=== PATIENT | female | born 1960 | race Caucasian/White ===

== ENCOUNTER → 2017-10-25 13:42 | Outpatient (CLI) | payer OTHER, SELFPAY ==
--- NOTE | 2017-10-25 13:53 | MR_ITS ---
MR forearm RT wo con Ordering Physician: Willis Abraham MD Patient Age: 57 years: Female HISTORY: ITS.REASON: Firm lipoma of the RT forearm/wrist region TECHNIQUE: Multiplanar multisequence imaging 1.5 T MR. COMPARISON :No relevant previous studies for comparison FINDINGS Skin Marker was placed over palpable area at the ulnar aspect distal wrist. There is a slightly septated scalloped fluid appearing collection here which extends down to abuts the flexor digitorum superficialis tendon, where it passes along the posterior aspect distal ulnar neck and head . Again is palpable area demonstrates fluid signal,. It Measures up to 2.5 cm in length 7.5 mm depth. X 17 mm AP. It does appear to extend to the skin on axial images. However this could reflect a ganglion cyst. Versus some other dermal or sebaceous cyst. These are primary considerations. Other cystic features can occur but less common. It is not fat signal , and thus does to reflect lipoma by MRI. Of the bones with normal signal at at the distal radius and ulna. The carpalsintact & normal relationships.. The lunate with slight generous extension dorsally on the sagittal image but suspect this merely reflects minimal normal variation versus early hypertrophic change on sagittal image 12 The triangle fibrocartilage is in place with upper normal signal at its base T2 signal physician Upper normal signal which may reflects minimal fluid is seen along the anterior aspect the radial styloid but no significant wrist joint effusion otherwise evident. Carpal tunnel intact with no prominent findings. -----IMPRESSION: - -- The palpable area correlates with septated fluid signal structure. This is seen at end just beneath the skin throughout the subcutaneous region, but this fluid collection does extends down to just abut the flexor digitorum superficialis tendon as well. Most likely this reflects either a ganglion cyst or possibly a dermal cystic feature. Other less common entities considered as well. (No fat signal here nor fat suppression to suggest lipoma) Additional note:. On final review of sagittal fat suppression water sensitive images, there may be some scant fluid signal/, which may reflect very very thin extension of fluid distally from area described above. & Questionably seen along medial margin of the ulnar styloid. This feature questioned on sagittal slice 13 but difficult to confirm on other images .. This area is noted and should be considered if this region further pursued
== END ==
PROVIDERS: PCP Family Medicine; Visit Provider Orthopaedic Surgery
DX: D17.21 Benign lipomatous neoplasm of skin and subcutaneous tissue of right arm (principal)
CPT/HCPCS: 73218

== ENCOUNTER → 2020-04-21 15:17 | Outpatient (CLI) | payer OTHER, SELFPAY ==
[2020-04-21 17:11] LABS: Basophils % 0.4 % (0.1-2.0); Eosinophils # 0.1 K/mm3 (0.0-0.4); Eosinophils % 1.5 % (0.1-12.0); Hematocrit 44.6 % (37.0-47.0); Hemoglobin 14.6 g/dL (12.2-16.2); Lymphocytes # 1.6 K/mm3 (0.7-4.5); Lymphocytes % 17.5 % (10-50); Mean Corpuscular HGB Conc 32.6 g/dL (31.8-35.4); Mean Corpuscular Hemoglobin 27.2 pg (27.0-31.2); Mean Corpuscular Volume 83.4 fl (81-99); Mean Platelet Volume 8.4 fl (7.4-10.4); Monocytes # 0.4 K/mm3 (0.1-1.0); Monocytes % 3.9 % (1.7-9.3); Neutrophils # 7.1 K/mm3 (1.8-7.8); Neutrophils % 76.6 % (37.0-80.0); Platelet Count 225 K/mm3 (142-424); Red Blood Count 5.35 M/mm3 (4.20-5.40); Red Cell Distribution Width 16.2 % (11.5-17.5); White Blood Count 9.3 K/mm3 (4.8-10.8)
[2020-04-21 20:55] LABS: Strep Scrn Group A (Rapid) Negative (Negative)
[2020-04-23 16:10] LABS: Covid-19 Nasal PCR Sendout Lex Not Detected
== END ==
PROVIDERS: PCP Nurse Practitioner; Visit Provider Nurse Practitioner
DX: Z03.818 Encounter for observation for suspected exposure to other biological agents ruled out (principal)
CPT/HCPCS: 36415; 85025; 87430; U0004

== ENCOUNTER → 2021-03-25 10:53 | Outpatient (CLI) | payer OTHER, SELFPAY | PROVIDERS: Visit Provider Ophthalmology | DX: Z01.812 Encounter for preprocedural laboratory examination (principal); Z11.52 Encounter for screening for COVID-19 | CPT/HCPCS: C9803; U0003; U0005 ==

== ENCOUNTER 2021-03-28 06:59 | Day surgery (SDC) | payer OTHER, SELFPAY ==
[2021-03-22 13:52] VITALS: BMI 38.7
[2021-03-28] VITALS (7 sets, daily range): BP systolic 132–219; BP diastolic 73–105; PULSE 84–90; RESP 16–18; TEMP 36.3–36.6; O2SAT 96–100
[2021-03-28 07:53] LABS: POC Glucose,Bedside 350 (70-110)
== END 2021-03-28 08:55 | disposition home or self-care (01) ==
LOC: OR 07:03
PROVIDERS: PCP Family Medicine; Visit Provider Ophthalmology
PROC: (CPT 66984; principal; 2021-03-28 08:00)
DX: H25.813 Combined forms of age-related cataract, bilateral (principal); E11.9 Type 2 diabetes mellitus without complications; I10 Essential (primary) hypertension; Z79.82 Long term (current) use of aspirin; Z79.899 Other long term (current) drug therapy
CPT/HCPCS: 66984; 82962; V2632

== ENCOUNTER → 2021-04-08 11:17 | Outpatient (CLI) | payer OTHER, SELFPAY | PROVIDERS: PCP Family Medicine; Visit Provider Ophthalmology | DX: Z01.812 Encounter for preprocedural laboratory examination (principal); Z11.52 Encounter for screening for COVID-19; U07.1 COVID-19 | CPT/HCPCS: C9803; U0003; U0005 ==

== ENCOUNTER → 2021-06-13 09:50 | Outpatient (CLI) | payer OTHER, SELFPAY | PROVIDERS: PCP Family Medicine; Visit Provider Nurse Practitioner | DX: Z20.822 Contact with and (suspected) exposure to COVID-19 (principal) | CPT/HCPCS: C9803; U0003; U0005 ==

== ENCOUNTER → 2021-11-04 11:41 | Outpatient (CLI) | payer OTHER, SELFPAY | PROVIDERS: Visit Provider Ophthalmology | DX: Z01.812 Encounter for preprocedural laboratory examination (principal); Z20.822 Contact with and (suspected) exposure to COVID-19 | CPT/HCPCS: C9803; U0003; U0005 ==

== ENCOUNTER 2021-11-07 08:13 | Day surgery (SDC) | payer OTHER, SELFPAY ==
[2021-11-02 12:43] VITALS: BMI 40.3
[2021-11-07] VITALS (8 sets, daily range): BP systolic 111–151; BP diastolic 56–77; PULSE 58–65; RESP 16–18; TEMP 36.1; O2SAT 98–100
[2021-11-07 09:00] LABS: POC Glucose,Bedside 197 (70-110)
== END 2021-11-07 11:04 | disposition home or self-care (01) ==
LOC: OR 08:13
PROVIDERS: PCP Nurse Practitioner; Visit Provider Ophthalmology
PROC: (CPT 66984; principal; 2021-11-07 10:30)
DX: H25.812 Combined forms of age-related cataract, left eye (principal); S05.32XA Ocular laceration without prolapse or loss of intraocular tissue, left eye, initial encounter; H59.88 Other intraoperative complications of eye and adnexa, not elsewhere classified; H35.3131 Nonexudative age-related macular degeneration, bilateral, early dry stage; Z96.1 Presence of intraocular lens; E11.9 Type 2 diabetes mellitus without complications; I10 Essential (primary) hypertension; Z83.3 Family history of diabetes mellitus; Z82.49 Family history of ischemic heart disease and other diseases of the circulatory system; Z83.518 Family history of other specified eye disorder; Z79.82 Long term (current) use of aspirin; Z79.4 Long term (current) use of insulin; Z79.899 Other long term (current) drug therapy
CPT/HCPCS: 66984; 67010; 82962; V2632

== ENCOUNTER 2023-01-31 13:18 | Inpatient (IN) | payer OTHER, SELFPAY ==
[2023-01-31] VITALS (16 sets, daily range): BP systolic 87–128; BP diastolic 24–99; PULSE 71–78; RESP 16–20; TEMP 36.4–36.6; O2SAT 95–100; BMI 34.7; BMI 41.0
--- NOTE | 2023-01-31 13:54 | XR_ITS ---
FINAL REPORT CLINICAL HISTORY: fall, pain FINDINGS: Left hip Four views were obtained. There is a fracture of the distal femoral neck. 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 There are mild degenerative changes of both hips and in the lower lumbar spine. IMPRESSION: Femoral neck fracture. Reviewed, Interpreted and Dictated by Christiano Valdovinos III, MD Transcribed by Sakshi Vega Authenticated and [facility]
--- NOTE | 2023-01-31 14:14 | PC.NURSE ---
Patient to XR
--- NOTE | 2023-01-31 14:22 | PC.NURSE ---
Patient reporting increased pain; MD notified. V/O from MD for 4mg IVP Morphine and 4mg IVP Zofran.
--- NOTE | 2023-01-31 14:25 | PC.NURSE ---
Rounded on patient; call león within reach. Updated on plan of care
--- NOTE | 2023-01-31 14:31 | CT_ITS ---
FINAL REPORT CLINICAL HISTORY: low back pain raddown L leg FINDINGS: Axial imaging of the lumbar spine was obtained without contrast. Sagittal and coronal reformatted images were also obtained and reviewed.This study was performed with techniques to keep radiation doses as low as reasonably achievable (ALARA). Individualized dose reduction techniques using automated exposure control or adjustment of mA and/or kV according to the patient''s size were employed. There is no fracture or dislocation. There are multilevel degenerative changes, greatest at L5-S1. There is severe right and moderate left neural foraminal narrowing at L5-S1. There is neural foraminal narrowing at multiple other levels. IMPRESSION: Multilevel degenerative change without acute bony abnormality. Reviewed, Interpreted and Dictated by Christiano Valdovinos III, MD Transcribed by Sakshi Vega Authenticated and [facility]
--- NOTE | 2023-01-31 14:32 | HMH.EDGENADL ---
Discharge Plan Disposition Patient Disposition: Admitted As Inpatient Condition: Good Clinical Impressions Clinical Impression: Closed fracture of neck of left femur Qualifiers: Encounter type: initial encounter Qualified Code(s): S72.002A - Fracture of unspecified part of neck of left femur, initial encounter for closed fracture Discharge ED Provider: Leisa Hartman General Adult HPI <Leisa Hartman DO - Last Filed: 01/31/23 16:50> General Chief complaint: Extremity Injury, Lower Stated complaint: fall Time Seen by Provider: 01/31/23 14:31 Mode of Arrival: EMS Source of Information: Patient Limitations: No Limitations Description of Symptoms (Recalled from ER Triage Doc. by RN): Presents to ED with c/o left hip pain secondary to a fall. Patient states she was attempting to pull her underwearing up and went to reach for her walker and missed with walker. 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 -LOC. +PMS. History of Present Illness HPI narrative: This patient is a 62-year-old female with a history of obesity, diabetes, hypertension, hyperlipidemia, chronic back pain secondary to degenerative disease, and chronic left hip pain secondary to osteoarthritis presenting to the emergency department for evaluation with concern for acute left hip pain radiating down her left leg to her posterior calf. she states that this worsened today acutely. She ambulates with a walker at home and used her walker to get to her bedside commode. When pulling up her underwear after using the bathroom, she states that she twisted to the side and felt an immediate pain in her left hip going down her leg. She arrived by EMS, as she slumped down to the floor and was unable to get up. She denies any significant injuries from the fall. EMS notes the patient was stable in route. Patient denies any numbness, tingling, saddle anesthesia, incontinence, or other concerns. Related Data Home Medications Medication Instructions Recorded Confirmed glimepiride 4 mg tablet 4 mg PO QAM Diabetes 10/11/17 01/31/23 hydrochlorothiazide 25 mg tablet 25 mg PO QAM blood pressure 10/11/17 01/31/23 lisinopril 2.5 mg tablet 2.5 mg PO ONCE blood pressure 10/11/17 01/31/23 omeprazole 20 mg capsule,delayed 20 mg PO ONCE acid reflux 10/11/17 01/31/23 release rosuvastatin 10 mg tablet 10 mg PO ONCE Cholesterol 10/11/17 01/31/23 aspirin 81 mg chewable tablet 81 mg PO DAILY Heart disease 11/19/17 01/31/23 insulin glargine 100 unit/mL (3 4 unit SQ BID Diabetes 01/31/23 01/31/23 mL) subcutaneous pen (Basaglar KwikPen U-100 Insulin) Allergies Allergy/AdvReac Type Severity Reaction Status Date / Time No Known Allergies Allergy Verified 11/07/21 08:54 PFS <Leisa Hartman, DO - Last Filed: 01/31/23 16:50> [facility] Disclaimer: The information contained in this section may have been updated after the patient was seen, as this information can be updated by other users. Medical History (Updated 01/31/23 @ 21:39 by Fadi Ba APRN) Diabetes mellitus, type 2 Hyperlipidemia Hypertension Surgical History (Updated 01/31/23 @ 20:25 by Erma Austin RN) History of cholecystectomy History of tubal ligation Family History (Updated 01/31/23 @ 20:27 by Erma Austin RN) Sister Breast cancer Sister Cancer of kidney Brother Family history of diabetes mellitus type II Family history of acute heart failure Father Family history of acute heart failure Mother Family history of acute heart failure Social History (Updated 01/31/23 @ 20:28 by Erma Austin RN) Smoking Status: Former smoker second hand exposure: No alcohol intake: never counseling provided: none substance use type: denies use current occupational status: retired Travel in the last 8 weeks: None household members: spouse housing: house 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
--- NOTE | 2023-01-31 14:53 | PC.NURSE ---
Rounded on patient; call león within reach warm blanket provided to patient
--- NOTE | 2023-01-31 15:24 | PC.NURSE ---
Pt back from CT
--- NOTE | 2023-01-31 15:51 | PC.NURSE ---
Rounded on patient; nothing needed at this time. Patient's O2 sat upon entering the room was 88% RA. 2L NC applied to patient with improvement O2 sat now 96%
--- NOTE | 2023-01-31 16:14 | XR_ITS ---
PROCEDURE INFORMATION: Exam: XR Left Knee Exam date and time: 01/31/2023 4:25 PM Age: 62 years old Clinical indication: Pain; Hip; Left; Additional info: Pain, lt hip FX TECHNIQUE: Imaging protocol: Radiologic exam of the left knee. Views: 3 views. COMPARISON: No relevant prior studies available. FINDINGS: Bones/joints: There is no evidence of acute fracture or dislocation. Mild osteoarthritic degenerative changes involve the knee. There is mild subchondral sclerosis of the medial tibial plateau and mild marginal osteophytes involving the lateral femoral tibial articulation. Mild subchondral sclerosis and osteophytes also involve the patellofemoral joint. Enthesopathic spurring involves the superior patella. Small ossific density superior to the patella may reflect sequela of remote injury. Soft tissues: No significant soft tissue edema. No subcutaneous emphysema or radiopaque foreign bodies. There is mild diffuse osteopenia. IMPRESSION: 1. No acute posttraumatic osseous injury. 2. Mild osteoarthritic degenerative changes.
--- NOTE | 2023-01-31 16:14 | XR_ITS ---
PROCEDURE INFORMATION: Exam: XR Left Femur Exam date and time: 01/31/2023 4:27 PM Age: 62 years old Clinical indication: Pain; Hip; Left; Additional info: Pain, lt hip FX TECHNIQUE: Imaging protocol: Radiologic exam of the left femur. Views: 2 views. COMPARISON: CR XR KNEE LT 3V 01/31/2023 4:25 PM FINDINGS: Bones/joints: There is acute fracture involving the left femoral intertrochanteric region. There is mild varus angulation and mild overlap of the fracture fragments by approximately 18 mm. No additional acute fractures are seen. Mild to moderate osteoarthritis involves the left femur and left knee, more optimally described on the CT of the femur from the the same date and time. Please reference that report for additional information. Soft tissues: There is mild associated perifractural edema.No subcutaneous emphysema or radiopaque foreign bodies. IMPRESSION: Acute fracture involving the left femoral intertrochanteric region.
--- NOTE | 2023-01-31 16:18 | CT_ITS ---
PROCEDURE INFORMATION: Exam: CT Pelvis Without Contrast; Skeletal Exam date and time: 01/31/2023 4:48 PM Age: 62 years old Clinical indication: Hip pain; Left hip; Additional info: L hip pain, hip FX TECHNIQUE: Imaging protocol: Computed tomography of the pelvis without contrast. Exam focused on the skeleton. Radiation optimization: All CT scans at this facility use at least one of these dose optimization techniques: automated exposure control; mA and/or kV adjustment per patient size (includes targeted exams where dose is matched to clinical indication); or iterative reconstruction. REPORTING DATA: Count of CT and Cardiac NM exams in prior 12 months: This patient has received 0 known CTs and 0 known cardiac nuclear medicine studies in the 12 months prior to the current study. COMPARISON: CR XR HIP LT 2-3V W/PELVIS 01/31/2023 3:04 PM FINDINGS: Stomach and bowel: Lack of gastrointestinal contrast limits evaluation of bowel. Visualized portions of the bowel appear within range of normal. Bladder:The bladder appears within range of normal. Appendix: A normal appendix is identified. Reproductive: There is a well-circumscribed ovoid fat density structure in the right adnexal region measuring approximately 2 by 1.4 by 1.5 cm. There is surrounding soft tissue density which appears somewhat ovoid and measures approximately 5.7 x 3.5 by 3.5 cm, likely reflects ovarian tissue. There are a few additional adjacent calcifications. Findings most likely reflect right ovarian dermoid.The uterus is either atrophic or absent. No adnexal masses. The left ovary appears within range of normal.There is no evidence of free intraperitoneal or pelvic fluid. Vasculature: The visualized aorta and iliac arteries demonstrate mild atherosclerotic calcification. Bones/joints: There is an acute fracture involving the left femoral intertrochanteric region. There is mild valgus positioning with mild superior displacement of the main distal fracture fragment. Fracture appears minimally comminuted. No intra-articular extension. There are mild degenerative changes of the symphyseal pubic joint. There are mild degenerative changes of the sacroiliac joints. Mild osteoarthritic degenerative changes involve both hips. No additional acute fractures are seen. The visualized lower lumbar spine demonstrates moderate degenerative changes at multiple levels. There is mild to moderate intervertebral disc space narrowing at the L5-S1 level with endplate discogenic degenerative changes, vacuum disc phenomenon and marginal osteophytes. Moderate to marked bilateral neural foraminal narrowing is present at this level. Diffuse posterior bar/disc produces mild to moderate ventral effacement upon the thecal sac and mild to moderate central canal stenosis and lateral recess stenosis, greater on the right. Diffuse bar/disc at the L4-L5 level produces mild to moderate ventral effacement upon the thecal sac and mild to moderate central canal stenosis.Hypertrophic facet degenerative arthropathy, greater on the left, contributes to the central canal stenosis and left neural foraminal narrowing. There is marked left and moderate rightward neural foraminal narrowing at this level. Soft tissues: There is mild associated perifractural edema. No focal hematomas. IMPRESSION: 1. Acute intertrochanteric fracture of the left femur. 2. Fat density structure in the right adnexal region likely reflecting right ovarian dermoid. This could be confirmed with pelvic ultrasound on a nonemergent basis. Correlate clinically.
--- NOTE | 2023-01-31 16:18 | CT_ITS ---
PROCEDURE INFORMATION: Exam: CT Left Lower Extremity Without Contrast; Thigh Exam date and time: 01/31/2023 4:51 PM Age: 62 years old Clinical indication: Pain; Hip; Left; Additional info: L hip pain, hip FX TECHNIQUE: Imaging protocol: CT of the left lower extremity without contrast was performed. Exam focused on the thigh. Radiation optimization: All CT scans at this facility use at least one of these dose optimization techniques: automated exposure control; mA and/or kV adjustment per patient size (includes targeted exams where dose is matched to clinical indication); or iterative reconstruction. REPORTING DATA: Count of CT and Cardiac NM exams in prior 12 months: This patient has received 0 known CTs and 0 known cardiac nuclear medicine studies in the 12 months prior to the current study. COMPARISON: CR XR FEMUR LT 2V 01/31/2023 4:27 PM FINDINGS: Bones/joints: There is an acute fracture involving the left femoral intertrochanteric region. There is mild valgus positioning with mild superior displacement of the main distal fracture fragment. No significant comminution.. No intra-articular extension. There is mild overlap of the fracture fragments by approximately 18 mm. There are mild degenerative changes of the symphyseal pubic joint. Mild osteoarthritic degenerative changes involve the left hip. No additional acute fractures are seen. [id number] osteoarthritic degenerative changes involve the left knee. There is subchondral sclerosis and marginal osteophytes involving the femoral tibial articulation. There is mild joint space narrowing also present. [id number] osteoarthritic degenerative changes also involve the patellofemoral joint with joint space narrowing, subchondral sclerosis and marginal osteophytes. Well-circumscribed small ossific density superior to the patella likely reflects sequela of remote injury. Findings within the lower pelvis are described in the associated CT of the pelvi s report from the same date and time. Please reference that report for additional information. Soft tissues: There is mild associated perifractural edema. No focal hematomas. There is a ovoid fat density structure measuring approximately 2.8 x 2.0 by 4.0 cm involving the vastus lateralis consistent with lipoma. There is a 2nd lipoma also located slightly more inferiorly in the same location measuring approximately 4.2 by 2.1 by 9.3 cm. IMPRESSION: Acute left femoral intertrochanteric fracture is described. No additional acute fractures.
--- NOTE | 2023-01-31 16:20 | PC.NURSE ---
ER MD Hartman spoke with Dr. Crowley, requested pt have a ct and then us call him back with results.
--- NOTE | 2023-01-31 16:20 | PC.NURSE ---
Patient's current BP 93/36 with a MAP of 55 MD notified V/O for 1L LR IV bolus
--- NOTE | 2023-01-31 16:27 | PC.NURSE ---
Rounded on patient; helped patient readjust herself in the bed. Call light within reach
--- NOTE | 2023-01-31 17:20 | PC.NURSE ---
Rounded on patient; phlebotomy @ BS
[2023-01-31 17:55] LABS: Basophils % 0.3 % (0.1-2.0); Eosinophils # 0.2 K/mm3 (0.0-0.4); Eosinophils % 1.8 % (0.1-12.0); Hemoglobin 12.7 g/dL (12.2-16.2); Lymphocytes % 11.7 % (10-50); Mean Corpuscular HGB Conc 31.7 g/dL (31.8-35.4); Mean Corpuscular Hemoglobin 27.1 pg (27.0-31.2); Mean Corpuscular Volume 85.4 fl (81-99); Mean Platelet Volume 8.4 fl (7.4-10.4); Monocytes # 0.4 K/mm3 (0.1-1.0); Monocytes % 3.9 % (1.7-9.3); Neutrophils # 7.3 K/mm3 (1.8-7.8); Neutrophils % 82.4 % (37.0-80.0); Platelet Count 164 K/mm3 (142-424); Red Blood Count 4.68 M/mm3 (4.20-5.40); Red Cell Distribution Width 16.8 % (11.5-17.5); White Blood Count 8.9 K/mm3 (4.8-10.8)
--- NOTE | 2023-01-31 18:12 | PC.NURSE ---
Dr Hartman speaking with Dr Crowley
--- NOTE | 2023-01-31 18:15 | PC.NURSE ---
contacted lab to check on status of CMP, states specimen is running now
[2023-01-31 18:18] LABS: Alanine Aminotransferase 90 U/L (12-78); Albumin Level 3.8 g/dl (3.5-5.0); Albumin/Globulin Ratio 1.5 (1.1-1.8); Alkaline Phosphatase 215 U/L (38-126); Anion Gap 12.9 mEq/L (5-15); Aspartate Amino Transferase 158 U/L (14-36); Bilirubin,Total 0.4 mg/dl (0.2-1.3); Blood Urea Nitrogen 37 mg/dl (7-17); Calcium 8.6 mg/dl (8.4-10.2); Carbon Dioxide 29 mmol/L (22.0-30.0); Chloride 103 mmol/L (98-107); Creatinine Clearance Estimated 89 mL/min (50-200); Estimated Glomerular Filt Rate 63 ml/min (>60); GFR (African American) 77 ML/MIN (>60); Globulin 2.6 g/dL (1.3-3.2); Glucose 81 mg/dl (74-100); Potassium 4.9 mmoL/L (3.5-5.1); Sodium 140 mmol/L (136-145); Total Protein,Serum 6.4 g/dl (6.3-8.2)
--- NOTE | 2023-01-31 19:22 | PC.NURSE ---
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
--- NOTE | 2023-01-31 19:23 | PC.NURSE ---
OBSERVATION ADMISSION TO ROOM 205 WITH DX OF FEMUR FX TO SERVICE OF THE HOSPITALIST.
--- NOTE | 2023-01-31 19:40 | PC.NURSE ---
Rounded on patient; call león within reach
--- NOTE | 2023-01-31 20:04 | PC.NURSE ---
pt to floor via stretcher at this time.
--- NOTE | 2023-01-31 20:14 | EXP.HP ---
History of Present Illness *Admission Date: 01/31/23 *Reason for visit:: femur fracture *History of present illness: This is a 62-year-old female with a history of obesity, diabetes, hypertension, hyperlipidemia, chronic back pain secondary to degenerative disease, and chronic left hip pain secondary to osteoarthritis presenting to the emergency department for evaluation with concern for acute left hip pain radiating down her left leg to her posterior calf. She ambulates with a walker at home and used her walker to get to her bedside commode. When pulling up her underwear after using the bathroom, she states that she twisted to the side and felt an immediate pain in her left hip going down her leg. She arrived by EMS, as she slumped down to the floor and was unable to get up. She denies any significant injuries from the fall. EMS notes the patient was stable in route. Patient denies any numbness, tingling, saddle anesthesia, incontinence, or other concerns. admitted for further management. [facility] Disclaimer: The information contained in this section may have been updated after the patient was seen, as this information can be updated by other users. Medical History (Updated 02/01/23 @ 10:52 by Abdoul Crowley JR, MD) Diabetes mellitus, type 2 Hyperlipidemia Hypertension Surgical History (Updated 01/31/23 @ 20:25 by Erma Austin RN) History of cholecystectomy History of tubal ligation Family History (Updated 01/31/23 @ 20:27 by Erma Austin RN) Sister Breast cancer Sister Cancer of kidney Brother Family history of diabetes mellitus type II Family history of acute heart failure Father Family history of acute heart failure Mother Family history of acute heart failure Social History (Updated 01/31/23 @ 20:28 by Erma Austin RN) Smoking Status: Former smoker second hand exposure: No alcohol intake: never counseling provided: none substance use type: denies use current occupational status: retired Travel in the last 8 weeks: None household members: spouse housing: house 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 current occupational exposures/hazards: No caffeine: Yes Review of Systems Review of Systems Review of systems:: pertinent systems reviewed and negative unless documented below Meds Home Medications and Allergies Home Medications Medication Instructions Recorded Confirmed Type hydrochlorothiazide 25 mg tablet 25 mg PO DAILY Fluid 10/11/17 02/01/23 History lisinopril 2.5 mg tablet 2.5 mg PO DAILY High Blood Pressure 10/11/17 02/01/23 History omeprazole 20 mg capsule,delayed 20 mg PO DAILY acid reflux 10/11/17 02/01/23 History release rosuvastatin 10 mg tablet 10 mg PO DAILY Cholesterol 10/11/17 02/01/23 History aspirin 81 mg chewable tablet 81 mg PO DAILY Heart disease 11/19/17 01/31/23 History insulin glargine 100 unit/mL (3 75 unit SQ DAILY Diabetes 01/31/23 02/01/23 History mL) subcutaneous pen (Basaglar KwikPen U-100 Insulin) cholecalciferol (vitamin D3) 125 125 mcg PO DAILY Supplement 02/01/23 02/01/23 History mcg (5,000 unit) tablet (Vitamin D3) diclofenac sodium 75 mg 75 mg PO BIDWMEAL Pain 02/01/23 02/01/23 History tablet,delayed release empagliflozin 25 mg tablet 25 mg PO DAILY Diabetes 02/01/23 02/01/23 History (Jardiance) ergocalciferol (vitamin D2) 1,250 1,250 mcg PO DIRECTED Supplement 02/01/23 02/01/23 History mcg (50,000 unit) capsule levocetirizine 5 mg tablet 5 mg PO DAILY Allergy Symptoms 02/01/23 02/01/23 History methocarbamol 500 mg tablet 500 mg PO BID Pain 02/01/23 02/01/23 History metoprolol tartrate 25 mg tablet 25 mg PO BID High Blood Pressure 02/01/23 02/01/23 History oxycodone 5 mg tablet 5 mg PO Q4H PRN pain #45 tabs 02/01/23 Rx pregabalin 150 mg capsule 150 mg PO TID Pain 02/01/23 02/01/23 History rivaroxaban 10 mg tablet (Xarelto) 10 mg PO DAILY #30 tabs 02/01/23 Rx sertraline 100 mg tablet 1
[2023-01-31 22:12] LABS: POC Glucose,Bedside 86 (70-110)
[2023-02-01] VITALS (22 sets, daily range): BP systolic 89–138; BP diastolic 54–98; PULSE 72–114; RESP 16–18; TEMP 36.3–43; O2SAT 90–100; BMI 41.2; BMI 41.8
--- NOTE | 2023-02-01 05:01 | PC.NURSE ---
Patient has had a good night since coming to the floor. Has complained of pain, SEE MAR, has been NPO since midnight. No other issues noted
[2023-02-01 07:11] LABS: Basophils % 0.3 % (0.1-2.0); Eosinophils # 0.1 K/mm3 (0.0-0.4); Eosinophils % 2.4 % (0.1-12.0); Hematocrit 40.5 % (37.0-47.0); Hemoglobin 12.7 g/dL (12.2-16.2); Lymphocytes # 1.1 K/mm3 (0.7-4.5); Lymphocytes % 18.2 % (10-50); Mean Corpuscular HGB Conc 31.4 g/dL (31.8-35.4); Mean Corpuscular Hemoglobin 27.3 pg (27.0-31.2); Mean Corpuscular Volume 87.2 fl (81-99); Mean Platelet Volume 8.9 fl (7.4-10.4); Monocytes # 0.3 K/mm3 (0.1-1.0); Monocytes % 4.4 % (1.7-9.3); Neutrophils # 4.4 K/mm3 (1.8-7.8); Neutrophils % 74.6 % (37.0-80.0); Platelet Count 164 K/mm3 (142-424); Red Blood Count 4.64 M/mm3 (4.20-5.40); Red Cell Distribution Width 16.8 % (11.5-17.5); White Blood Count 5.9 K/mm3 (4.8-10.8)
[2023-02-01 07:15] LABS: INR 1.01 (0.9-1.1); Prothrombin Time 10.9 seconds (10.1-12.5)
[2023-02-01 07:43] LABS: POC Glucose,Bedside 74 (70-110)
--- NOTE | 2023-02-01 07:43 | EXP.PN ---
Subjective *Date: 02/01/23 *Time: 08:00 Interval history: No acute events overnight. Exam Data for Last 24 hours Vital signs and Labs for Last 24 Hours: Temp Pulse Resp BP Pulse Ox O2 Del Method O2 Flow Rate 97.7 F 72 18 107/61 L 98 Nasal Cannula 2 02/01/23 00:00 02/01/23 00:00 02/01/23 00:00 02/01/23 00:00 02/01/23 00:00 02/01/23 06:57 02/01/23 06:57 Laboratory Results - last 24 hr 01/31/23 17:23: WBC 8.9, RBC 4.68, Hgb 12.7, Hct 40.0, MCV 85.4, MCH 27.1, MCHC 31.7 L, RDW 16.8, Plt Count 164, MPV 8.4, Neut % (Auto) 82.4 H, Lymph % (Auto) 11.7, Lane % (Auto) 3.9, Eos % (Auto) 1.8, Baso % (Auto) 0.3, Neut # (Auto) 7.3, Lymph # (Auto) 1.0, Lane # (Auto) 0.4, Eos # (Auto) 0.2, Baso # (Auto) 0.0, Sodium 140, Potassium 4.9, Chloride 103, Carbon Dioxide 29, Anion Gap 12.9, BUN 37 H, Creatinine 0.90, Estimated Creat Clear 89, Estimated GFR 63, Est GFR ( Amer) 77, Glucose 81, Calcium 8.6, Total Bilirubin 0.4, AST 158 H, ALT 90 H, Alkaline Phosphatase 215 H, Total Protein 6.4, Albumin 3.8, Globulin 2.6, Albumin/Globulin Ratio 1.5, Blood Type A Positive, Antibody Screen Negative 01/31/23 22:04: POC Glucose 86 02/01/23 06:35: WBC 5.9 D, RBC 4.64, Hgb 12.7, Hct 40.5, MCV 87.2, MCH 27.3, MCHC 31.4 L, RDW 16.8, Plt Count 164, MPV 8.9, Neut % (Auto) 74.6, Lymph % (Auto) 18.2, Lane % (Auto) 4.4, Eos % (Auto) 2.4, Baso % (Auto) 0.3, Neut # (Auto) 4.4, Lymph # (Auto) 1.1, Lane # (Auto) 0.3, Eos # (Auto) 0.1, Baso # (Auto) 0.0, PT 10.9, INR 1.01 02/01/23 07:02: POC Glucose 74 I & O for Last 24 hours: Intake & Output 01/29/23 01/30/23 01/31/23 02/01/23 23:59 23:59 23:59 23:59 Output Total 0 / 0 Balance 0 / 0 Weight 115.865 kg Constitutional Constitutional: no acute distress *Routine HEENT Exam Head: Present normocephalic Eye: Present EOMI and PERRL ENT: Present mucous membranes moist *Routine Neck Exam Neck: Present supple; Absent lymphadenopathy *Routine Respiratory Exam Respiratory: Present CTA bilaterally *Routine Cardiovascular Exam Cardiovascular: Present RRR *Routine Abdominal Exam Abdominal: Present soft and normoactive bowel sounds; Absent tenderness *Routine Extremities Exam Extremities: Absent cyanosis, clubbing or edema *Routine Skin Exam Skin: Present warm; Absent rash *Routine Neurological Exam Neurological: Present alert and oriented X3 Assessment and Plan *Assessment and plan (1) Fall at home: Status: Acute Qualifiers: Encounter type: initial encounter Qualified Code(s): W19.XXXA - Unspecified fall, initial encounter; Y92.009 - Unspecified place in unspecified non-institutional (private) residence as the place of occurrence of the external cause Category: Medical Code(s): W19.XXXA - Unspecified fall, initial encounter; Y92.009 - Unspecified place in unspecified non-institutional (private) residence as the place of occurrence of the external cause (2) Closed fracture of neck of left femur: Status: Inactive Qualifiers: Encounter type: initial encounter Qualified Code(s): S72.002A - Fracture of unspecified part of neck of left femur, initial encounter for closed fracture Category: Medical Code(s): S72.002A - Fracture of unspecified part of neck of left femur, initial encounter for closed fracture (3) Hypertension: Status: Acute Qualifiers: Hypertension type: unspecified Qualified Code(s): I10 - Essential (primary) hypertension Category: Medical Code(s): I10 - Essential (primary) hypertension (4) Hyperlipidemia: Status: Acute Qualifiers: Hyperlipidemia type: unspecified Qualified Code(s): E78.5 - Hyperlipidemia, unspecified Category: Medical Code(s): E78.5 - Hyperlipidemia, unspecified (5) Diabetes mellitus, type 2: Status: Acute Qualifiers: Diabetes mellitus terminal system operator insulin use: with terminal system operator use Diabetes mellitus complicatio
[2023-02-01 08:03] LABS: Chloride 106 mmol/L (98-107); Potassium 4.2 mmoL/L (3.5-5.1); Sodium 139 mmol/L (136-145)
[2023-02-01 08:05] LABS: Alanine Aminotransferase 246 U/L (12-78); Aspartate Amino Transferase 242 U/L (14-36)
[2023-02-01 08:06] LABS: Albumin Level 3.4 g/dl (3.5-5.0); Albumin/Globulin Ratio 1.1 (1.1-1.8); Alkaline Phosphatase 268 U/L (38-126); Anion Gap 9.2 mEq/L (5-15); Bilirubin,Total 0.4 mg/dl (0.2-1.3); Calcium 8.5 mg/dl (8.4-10.2); Carbon Dioxide 28 mmol/L (22.0-30.0); Glucose 89 mg/dl (74-100); Magnesium 1.9 mg/dl (1.6-2.3); Phosphorous 3.6 mg/dl (2.5-4.5); Total Protein,Serum 6.4 g/dl (6.3-8.2)
[2023-02-01 08:11] LABS: Blood Urea Nitrogen 29 mg/dl (7-17); Creatinine Clearance Estimated 54 mL/min (50-200); Estimated Glomerular Filt Rate 85 ml/min (>60); GFR (African American) 102 ML/MIN (>60)
[2023-02-01 08:40] LABS: POC Glucose,Bedside 61 (70-110)
--- NOTE | 2023-02-01 09:31 | HMH.PHAINT1 ---
Pharmacy Intervention Comments: MEDICATION RECONCILIATION COMPLETED ON PATIENT USING EXTERNAL FILL HISTORY FROM PHARMACY. -MARC CRUZ, JODYD
--- NOTE | 2023-02-01 10:30 | XR_ITS ---
FINAL REPORT CLINICAL HISTORY: GAMMA NAIL 2:43 FLUORO TIME COMPARISON: None FINDINGS: FLUOROSCOPY LESS THAN 1 HOUR HISTORY: Intraoperative fluoroscopy left hip FINDINGS: Fluoroscopy guidance was provided for left hip surgery. 10 spot films were obtained. 2 minutes 43 seconds of fluoroscopy time were used. IMPRESSION: As above. Dosage 62.86 mGy Reviewed, Interpreted and Dictated by Christiano Valdovinos III, MD Transcribed by Louisa Elkins Authenticated and [facility]
[2023-02-01 10:42] LABS: POC Glucose,Bedside 60 (70-110)
--- NOTE | 2023-02-01 10:50 | EXP.ORTH.CON ---
History of Present Illness *Admission Date: 01/31/23 *History of present illness: This is a 62-year-old female with a history of obesity, diabetes, hypertension, hyperlipidemia, chronic back pain secondary to degenerative disease, and chronic left hip pain secondary to osteoarthritis presenting to the emergency department for evaluation with concern for acute left hip pain radiating down her left leg to her posterior calf. She ambulates with a walker at home and used her walker to get to her bedside commode. When pulling up her underwear after using the bathroom, she states that she twisted to the side and felt an immediate pain in her left hip going down her leg. She arrived by EMS, as she slumped down to the floor and was unable to get up. She denies any significant injuries from the fall. EMS notes the patient was stable in route. Patient denies any numbness, tingling, saddle anesthesia, incontinence, or other concerns. admitted for further management. Remote history of skin cancer. [facility] Disclaimer: The information contained in this section may have been updated after the patient was seen, as this information can be updated by other users. Medical History (Updated 02/01/23 @ 10:52 by Abdoul Crowley JR, MD) Diabetes mellitus, type 2 Hyperlipidemia Hypertension Surgical History (Updated 01/31/23 @ 20:25 by Erma Austin RN) History of cholecystectomy History of tubal ligation Family History (Updated 01/31/23 @ 20:27 by Erma Austin RN) Sister Breast cancer Sister Cancer of kidney Brother Family history of diabetes mellitus type II Family history of acute heart failure Father Family history of acute heart failure Mother Family history of acute heart failure Social History (Updated 01/31/23 @ 20:28 by Erma Austin RN) Smoking Status: Former smoker second hand exposure: No alcohol intake: never counseling provided: none substance use type: denies use current occupational status: retired Travel in the last 8 weeks: None household members: spouse housing: house 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 current occupational exposures/hazards: No caffeine: Yes Meds Home Medications and Allergies Home Medications Medication Instructions Recorded Confirmed Type hydrochlorothiazide 25 mg tablet 25 mg PO DAILY Fluid 10/11/17 02/01/23 History lisinopril 2.5 mg tablet 2.5 mg PO DAILY High Blood Pressure 10/11/17 02/01/23 History omeprazole 20 mg capsule,delayed 20 mg PO DAILY acid reflux 10/11/17 02/01/23 History release rosuvastatin 10 mg tablet 10 mg PO DAILY Cholesterol 10/11/17 02/01/23 History aspirin 81 mg chewable tablet 81 mg PO DAILY Heart disease 11/19/17 01/31/23 History insulin glargine 100 unit/mL (3 75 unit SQ DAILY Diabetes 01/31/23 02/01/23 History mL) subcutaneous pen (Basaglar KwikPen U-100 Insulin) cholecalciferol (vitamin D3) 125 125 mcg PO DAILY Supplement 02/01/23 02/01/23 History mcg (5,000 unit) tablet (Vitamin D3) diclofenac sodium 75 mg 75 mg PO BIDWMEAL Pain 02/01/23 02/01/23 History tablet,delayed release empagliflozin 25 mg tablet 25 mg PO DAILY Diabetes 02/01/23 02/01/23 History (Jardiance) ergocalciferol (vitamin D2) 1,250 1,250 mcg PO DIRECTED Supplement 02/01/23 02/01/23 History mcg (50,000 unit) capsule levocetirizine 5 mg tablet 5 mg PO DAILY Allergy Symptoms 02/01/23 02/01/23 History methocarbamol 500 mg tablet 500 mg PO BID Pain 02/01/23 02/01/23 History metoprolol tartrate 25 mg tablet 25 mg PO BID High Blood Pressure 02/01/23 02/01/23 History pregabalin 150 mg capsule 150 mg PO TID Pain 02/01/23 02/01/23 History sertraline 100 mg tablet 100 mg PO DAILY Mood 02/01/23 02/01/23 History tirzepatide 5 mg/0.5 mL 5 mg SQ WEEKLY Diabetes 02/01/23 02/01/23 History subcutaneous pen injector (Sbunmarylouro) New Prescriptions to Start Prescriptions: Allergies Allergy/AdvReac Type Severity Marie
--- NOTE | 2023-02-01 12:26 | XR_ITS ---
FINAL REPORT CLINICAL HISTORY: postop FINDINGS: Left hip/pelvis Four views were obtained. There is no acute fracture or dislocation. There are postoperative changes in the left femur. Mild degenerative changes are seen of the hips. No soft tissue abnormality is identified. IMPRESSION: Postsurgical changes. Reviewed, Interpreted and Dictated by Christiano Valdovinos III, MD Transcribed by Sakshi Vega Authenticated and [facility]
--- NOTE | 2023-02-01 12:30 | EXP.OP.NOTE ---
Date of procedure: 02/01/23 Pre-op Diagnosis:: left intertrochanteric femur fracture Post-op Diagnosis:: same Procedure performed:: [id number]: Cephalomedullary nail fixation left intertrochanteric femur fracture Surgeon:: Abdoul Crowley JR, MD Anesthesia: JJA Estimated blood loss (mL): 100 Clinical Note:: 62-year-old female with left hip fracture as a result of a ground-level fall. Fracture pattern consistent with basicervical femoral neck with intertrochanteric extension. I had a discussion with she and her family regarding further management including arthroplasty versus cephalomedullary nail fixation. After discussion of risk, benefits, alternatives, she wished to proceed with cephalomedullary nail fixation left intertrochanteric femur fracture. We discussed the risk and benefits of surgery. Risks included but were not limited to pain, bleeding, infection, damage to adjacent structures, need for further surgery, wound healing complications, loss of limb, . Patient expressed verbal consent and written consent was obtained for the above procedure. Operative findings:: Tip apex distance less than 20 mm Operative note:: Patient was identified in preoperative holding. Operative site was marked in indelible ink. History, physical, consent were reviewed and updated. Patient was surrendered to the anesthesia team, taken to the operative suite. The patient was secured onto the fracture table with a belt and tape across the arms and upper chest area. Anesthesia was induced. A perineal post had been placed. The operative extremity was secured down and longitudinal traction applied through the post. The contralateral extremity was secured with pillow and rob wrap to arm. C-arm fluoroscopy was then brought in to check fracture alignment, and it was found to be acceptable on AP and lateral views. The operative extremity was prepped and draped in the usual sterile fashion. The operative team donned sterile gowns and gloves and a timeout was called. All in attendance agreed regarding the patient's identity, procedure, operative site. Weight-based dose of antibiotics was given prior to incision. A stab wound incision was made proximal to the tip of the greater trochanter and a Steinmann pin placed on the tip of the greater trochanter, localizing it on AP and lateral views to be in the center. This was placed down into the femur to the level of the lesser trochanter. The knife was used to enlarge the opening proximally and a guide placed over the pin down to the tip of the greater trochanter. The drill was used through the guide to open the greater trochanter. A ball-tipped guidewire was placed in the canal was reamed to appropriate diameter. The cephalomedullary nail was advanced over the guidewire to appropriate position. The placement was checked on AP and lateral views. The triple sleeve cannula was then placed through the guide connected onto the insertion handle. This was placed against the skin and then an incision made through the skin and fascia down onto bone. The cannula was then placed down until it was flush on the bone. The guide pin was drilled up into the center of the femoral head on AP and lateral views. The inner sleeve was then removed, and the length of the blade was measured. Step reamer was advanced to appropriate depth over the wire. A 10.5 mm lag screw of appropriate length was placed with tip apex distance less than 20 mm. Attention was then turned proximally, and the flexible screwdriver was used to tighten down the proximal screw to the lag screw. The distal bolt and cannulas were then placed through the targeting device and a small incision made through the skin and fascia allowing it to be placed flush against bone. Drill was used to drill through both cortices. An interlocking bolt of appropriate length was placed after drilling. Orthogonal fluoroscopic views demonstrated appropriate fracture alignment, safe intraosseous hardwa
[2023-02-01 12:59] LABS: POC Glucose,Bedside 111 (70-110)
--- NOTE | 2023-02-01 13:01 | EXP.ANES.CKL ---
[facility] Disclaimer: The information contained in this section may have been updated after the patient was seen, as this information can be updated by other users. Medical History (Updated 02/01/23 @ 10:52 by Abdoul Crowley JR, MD) Diabetes mellitus, type 2 Hyperlipidemia Hypertension Surgical History (Updated 01/31/23 @ 20:25 by Erma Austin RN) History of cholecystectomy History of tubal ligation Family History (Updated 01/31/23 @ 20:27 by Erma Austin RN) Sister Breast cancer Sister Cancer of kidney Brother Family history of diabetes mellitus type II Family history of acute heart failure Father Family history of acute heart failure Mother Family history of acute heart failure Social History (Updated 01/31/23 @ 20:28 by Erma Austin RN) Smoking Status: Former smoker second hand exposure: No alcohol intake: never counseling provided: none substance use type: denies use current occupational status: retired Travel in the last 8 weeks: None household members: spouse housing: house 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 current occupational exposures/hazards: No caffeine: Yes [facility] Anesthesia Checklist Patient Identification Patient Identification: Arm Band and Family Structural Data Admitted From: Inpatient Planned Operative Procedure/s: Left Hip Nailing Consent for Planned Operative Procedure(s) Verified: Yes Verified Documents: Surgical Consent and History and Physical NPO Status Verified Time NPO: 00:00 Additional verifications Patient : No Anesthesia Reactions: No Hx Blood Transfusions: No Blood Transfusion Reaction: No Cephalosporin Allergy: No Previous Colonoscopy: Yes Airway Assessment Mallampati Score:: Class II C-Spine Mobility Assessed: Yes TMJ Mobility Assessed: Yes Dentition: Edentulous Neurological Assessment Level of Consciousness: Awake, Alert, Appropriate and Follows Commands Hx Seizures: No Numbness or tingling in extremities: No Anesthesia Plan Anesthesia Risk discussed: Yes ASA Class: III Anesthesia Type: General Preoperative Comments Pre-Operative Comments: IDDM. Hypertension. Cardiac stent.
--- NOTE | 2023-02-01 13:03 | EXP.ANES.I ---
[facility] Anesthesia Record Part I Anesthesia Record I Intake, IV Amount: 1,300 Hydration: Adequate Estimated blood loss (mL): 100 Urine output (mL): 0 Blood Products used (#): none Blood Pressure: 133/98 SaO2: 96 Pulse Rate: 94 Airway Patency: Patent Respiratory Rate: 16 Temperature: 97.3 F Patient is:: Drowsy and Stable Stable to PACU at:: 12:50
--- NOTE | 2023-02-01 17:00 | PC.NURSE ---
A&OX4. TOLERATING RA WELL. TOLERATED PROCEDURE WELL. DRESSING/WOUND VAC IN PLACE. PT HAS C/O PAIN TO L FEMUR MULTIPLE TIMES, TX PER AUG. PURE WICK IN PLACE, ADEQUATE U/O. FAMILY HAS BEEN AT BEDSIDE. NO NEEDS OR C/O NOTED, VSS.
[2023-02-01 20:27] LABS: POC Glucose,Bedside 243 (70-110)
[2023-02-02] VITALS: BP 118/71; PULSE 102; RESP 20; TEMP 36.9; O2SAT 90
[2023-02-02 04:00] VITALS: BP 106/65; PULSE 100; RESP 20; TEMP 36.9; O2SAT 92; BMI 40.1
--- NOTE | 2023-02-02 04:56 | PC.NURSE ---
NO ACUTE CHANGES THIS SHIFT. VSS. DRESSING AND WOUND VAC REMAIN IN PLACE. PT WAS A MAX ASSIST FROM CHAIR TO BED. HAS BEEN MEDICATED FOR PAIN X3 SO FAR THIS SHIFT. PT DID GET UPSET WITH THE TECHS WHEN THEY WENT INTO PT'S ROOM TO CHANGE HER BED AFTER SHE CALLED OUT THAT SHE WAS WET. TECH STATED THAT PT PULLED HERSELF OVER TO ONE SIDE AND DID WELL BUT WHEN THE NEW SHEETS WERE TUCKED UNDER HER THE PT BEGAN TO SCREAM OUT IN PAIN. THIS RN WENT INTO PT'S ROOM TO ASSESS PAIN AND GIVE PRN MEDS AND PT STATED THAT SHE WAS, TREATED LIKE A SACK OF POTATOES . PT CURRENTLY RESTING IN BED AT THIS TIME WITH EYES CLOSED.
[2023-02-02 05:33] LABS: POC Glucose,Bedside 73 (70-110)
[2023-02-02 07:19] LABS: Basophils % 0.2 % (0.1-2.0); Eosinophils # 0.2 K/mm3 (0.0-0.4); Eosinophils % 1.7 % (0.1-12.0); Hematocrit 33.9 % (37.0-47.0); Lymphocytes % 11.3 % (10-50); Mean Corpuscular HGB Conc 31.8 g/dL (31.8-35.4); Mean Corpuscular Hemoglobin 27.1 pg (27.0-31.2); Mean Platelet Volume 8.6 fl (7.4-10.4); Monocytes # 0.6 K/mm3 (0.1-1.0); Monocytes % 6.1 % (1.7-9.3); Neutrophils # 7.4 K/mm3 (1.8-7.8); Neutrophils % 80.7 % (37.0-80.0); Platelet Count 167 K/mm3 (142-424); Red Blood Count 3.99 M/mm3 (4.20-5.40); Red Cell Distribution Width 16.9 % (11.5-17.5); White Blood Count 9.1 K/mm3 (4.8-10.8)
[2023-02-02 07:33] LABS: Chloride 103 mmol/L (98-107); Potassium 4.1 mmoL/L (3.5-5.1); Sodium 138 mmol/L (136-145)
[2023-02-02 07:36] LABS: Alanine Aminotransferase 285 U/L (12-78); Albumin Level 3.1 g/dl (3.5-5.0); Albumin/Globulin Ratio 1.1 (1.1-1.8); Alkaline Phosphatase 274 U/L (38-126); Anion Gap 8.1 mEq/L (5-15); Aspartate Amino Transferase 176 U/L (14-36); Bilirubin,Total 0.3 mg/dl (0.2-1.3); Blood Urea Nitrogen 18 mg/dl (7-17); Carbon Dioxide 31 mmol/L (22.0-30.0); Creatinine Clearance Estimated 103 mL/min (50-200); Estimated Glomerular Filt Rate 85 ml/min (>60); GFR (African American) 102 ML/MIN (>60); Globulin 2.8 g/dL (1.3-3.2); Total Protein,Serum 5.9 g/dl (6.3-8.2)
[2023-02-02 07:37] LABS: Calcium 8.2 mg/dl (8.4-10.2); Glucose 84 mg/dl (74-100)
[2023-02-02 08:00] VITALS: BP 99/54; PULSE 101; RESP 18; TEMP 36.7; O2SAT 93
[2023-02-02 08:24] LABS: Hemoglobin 10.7 g/dL (12.2-16.2)
[2023-02-02 10:43] LABS: POC Glucose,Bedside 103 (70-110)
[2023-02-02 12:00] VITALS: BP 114/61; PULSE 95; RESP 18; TEMP 36.7; O2SAT 93
--- NOTE | 2023-02-02 12:13 | EXP.PN ---
Subjective *Date: 02/02/23 *Time: 09:00 Interval history: No acute events overnight. The patient is needing to ask for PRN analgesic medications frequently. Exam Data for Last 24 hours Vital signs and Labs for Last 24 Hours: Temp Pulse Resp BP Pulse Ox O2 Del Method O2 Flow Rate 98.1 F 95 H 18 114/61 93 L Room Air 2 02/02/23 12:00 02/02/23 12:00 02/02/23 12:00 02/02/23 12:00 02/02/23 12:00 02/02/23 12:00 02/01/23 13:20 Laboratory Results - last 24 hr 02/01/23 12:52: POC Glucose 111 H 02/01/23 20:13: POC Glucose 243 H 02/02/23 05:25: POC Glucose 73 02/02/23 06:30: WBC 9.1 D, RBC 3.99 L, Hgb 10.7 L D, Hct 33.9 L, MCV 85.0, MCH 27.1, MCHC 31.8, RDW 16.9, Plt Count 167, MPV 8.6, Neut % (Auto) 80.7 H, Lymph % (Auto) 11.3, Iron % (Auto) 6.1, Eos % (Auto) 1.7, Baso % (Auto) 0.2, Neut # (Auto) 7.4, Lymph # (Auto) 1.0, Iron # (Auto) 0.6, Eos # (Auto) 0.2, Baso # (Auto) 0.0, Sodium 138, Potassium 4.1, Chloride 103, Carbon Dioxide 31 H, Anion Gap 8.1, BUN 18 H D, Creatinine 0.70, Estimated Creat Clear 103, Estimated GFR 85, Est GFR ( Amer) 102, Glucose 84, Calcium 8.2 L, Total Bilirubin 0.3, AST 176 H D, ALT 285 H, Alkaline Phosphatase 274 H, Total Protein 5.9 L, Albumin 3.1 L, Globulin 2.8, Albumin/Globulin Ratio 1.1 02/02/23 10:28: POC Glucose 103 I & O for Last 24 hours: Intake & Output 01/30/23 01/31/23 02/01/23 02/02/23 23:59 23:59 23:59 23:59 Intake Total 1540 / 1640 1634 / 1634 Output Total 450 / 450 600 / 600 Balance 1090 / 1190 1034 / 1034 Weight 115.865 kg 116.318 kg 113.171 kg Constitutional Constitutional: no acute distress *Routine HEENT Exam Head: Present normocephalic Eye: Present EOMI and PERRL ENT: Present mucous membranes moist *Routine Neck Exam Neck: Present supple; Absent lymphadenopathy *Routine Respiratory Exam Respiratory: Present CTA bilaterally *Routine Cardiovascular Exam Cardiovascular: Present RRR *Routine Abdominal Exam Abdominal: Present soft and normoactive bowel sounds; Absent tenderness *Routine Extremities Exam Extremities: Absent cyanosis, clubbing or edema *Routine Skin Exam Skin: Present warm; Absent rash *Routine Neurological Exam Neurological: Present alert and oriented X3 Assessment and Plan *Assessment and plan (1) Fall at home: Status: Acute Qualifiers: Encounter type: initial encounter Qualified Code(s): W19.XXXA - Unspecified fall, initial encounter; Y92.009 - Unspecified place in unspecified non-institutional (private) residence as the place of occurrence of the external cause Category: Medical Code(s): W19.XXXA - Unspecified fall, initial encounter; Y92.009 - Unspecified place in unspecified non-institutional (private) residence as the place of occurrence of the external cause (2) Closed fracture of neck of left femur: Status: Inactive Qualifiers: Encounter type: initial encounter Qualified Code(s): S72.002A - Fracture of unspecified part of neck of left femur, initial encounter for closed fracture Category: Medical Code(s): S72.002A - Fracture of unspecified part of neck of left femur, initial encounter for closed fracture (3) Hypertension: Status: Acute Qualifiers: Hypertension type: unspecified Qualified Code(s): I10 - Essential (primary) hypertension Category: Medical Code(s): I10 - Essential (primary) hypertension (4) Hyperlipidemia: Status: Acute Qualifiers: Hyperlipidemia type: unspecified Qualified Code(s): E78.5 - Hyperlipidemia, unspecified Category: Medical Code(s): E78.5 - Hyperlipidemia, unspecified (5) Diabetes mellitus, type 2: Status: Acute Qualifiers: Diabetes mellitus adjunct faculty for medical terminology insulin use: with adjunct faculty for medical terminology use Diabetes mellitus complication status: with other specified complication Qualified Code(s): E11.69 - Type 2 diabetes mellitus with other specified complication; Z
--- NOTE | 2023-02-02 14:52 | HMH.PTEV ---
Physical Therapy Evaluation Rehab PT IP Evaluation Start: 02/02/23 11:42 Freq: ONCE Status: Active Protocol: Document 02/02/23 14:29 PDESEROUX (Rec: 02/02/23 14:52 PDESEROUX [id number]) Subjective/History History History Pt. is a 62 yoa female with a history of DM-II, hypertension , and hyperlipidemia who presents to 2nd floor [facility] for the Physical Therapy Inpatient initial evaluation this date( 02/02/23) w/ c/o acute and constant LLE hip and leg P!, numbness, and weakness S/P cephalomedullary nail fixation let intertrochanteric femur fracture on 02/01/23. Pt. reports admitting self via EMS to [facility] on 01/31/23 after having a fall at home. Pt. reports she was standing at her bedside commode after using the restroom trying to pull her pants back up when she twisted the wrong way causing an increase in LLE P! where she ended up falling. Pt . reports she then called 911 herself. Pt. 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 Pt. reports she was scheduled to have surgery on the lumbar spine prior to this recent fall. Pt. reports since last week she needed assistance w/ ADLs, bedside commode, and ambulation with her FWW d/t worsening on symptoms. Pt. reports she lives w/ her in a 1-story home with 3 steps to enter. Pt. reports her son is planning on constructing a ramp into/out of home. Pt. reports her has a history of LBP! and does not provide much assistance. Shirley
[2023-02-02 16:00] VITALS: BP 121/50; PULSE 103; RESP 18; TEMP 36.8; O2SAT 91
--- NOTE | 2023-02-02 17:36 | PC.NURSE ---
pt has had better pain control today. pt worked wth PT, no c/o n/v. okay pedal pulses, wound vac still in place with no output at this time. pts at bs, cb w/i reach.
[2023-02-02 20:00] VITALS: BP 121/67; PULSE 55; RESP 16; TEMP 36.9; O2SAT 92
[2023-02-02 21:14] LABS: POC Glucose,Bedside 94 (70-110)
[2023-02-03] VITALS: BP 131/80; PULSE 114; RESP 16; TEMP 37.6; O2SAT 92
[2023-02-03 04:00] VITALS: BP 123/67; PULSE 102; RESP 16; TEMP 36.9; O2SAT 90; BMI 40.1
[2023-02-03 06:00] LABS: POC Glucose,Bedside 93 (70-110)
[2023-02-03 07:35] LABS: Basophils % 0.4 % (0.1-2.0); Eosinophils # 0.3 K/mm3 (0.0-0.4); Eosinophils % 3.6 % (0.1-12.0); Hematocrit 33.2 % (37.0-47.0); Hemoglobin 10.5 g/dL (12.2-16.2); Lymphocytes % 14.7 % (10-50); Mean Corpuscular HGB Conc 31.7 g/dL (31.8-35.4); Mean Corpuscular Hemoglobin 27.1 pg (27.0-31.2); Mean Corpuscular Volume 85.3 fl (81-99); Mean Platelet Volume 8.8 fl (7.4-10.4); Monocytes # 0.4 K/mm3 (0.1-1.0); Monocytes % 6.2 % (1.7-9.3); Neutrophils # 5.2 K/mm3 (1.8-7.8); Neutrophils % 75.1 % (37.0-80.0); Platelet Count 149 K/mm3 (142-424); Red Cell Distribution Width 17.1 % (11.5-17.5); White Blood Count 6.9 K/mm3 (4.8-10.8)
[2023-02-03 07:39] LABS: Chloride 105 mmol/L (98-107); Potassium 3.8 mmoL/L (3.5-5.1); Sodium 138 mmol/L (136-145)
[2023-02-03 07:42] LABS: Alanine Aminotransferase 241 U/L (12-78); Albumin Level 3.1 g/dl (3.5-5.0); Albumin/Globulin Ratio 1.1 (1.1-1.8); Alkaline Phosphatase 329 U/L (38-126); Anion Gap 10.8 mEq/L (5-15); Aspartate Amino Transferase 205 U/L (14-36); Bilirubin,Total 0.8 mg/dl (0.2-1.3); Blood Urea Nitrogen 14 mg/dl (7-17); Carbon Dioxide 26 mmol/L (22.0-30.0); Creatinine Clearance Estimated 103 mL/min (50-200); Estimated Glomerular Filt Rate 101 ml/min (>60); GFR (African American) 122 ML/MIN (>60); Globulin 2.9 g/dL (1.3-3.2)
[2023-02-03 07:43] LABS: Calcium 8.4 mg/dl (8.4-10.2); Glucose 91 mg/dl (74-100)
[2023-02-03 08:00] VITALS: BP 120/67; PULSE 102; RESP 16; TEMP 37.1; O2SAT 92
--- NOTE | 2023-02-03 08:18 | EXP.PN ---
Subjective *Date: 02/03/23 *Time: 23:07 Interval history: No acute events overnight. Pain is in control. She is eating well. Exam Data for Last 24 hours Vital signs and Labs for Last 24 Hours: Temp Pulse Resp BP Pulse Ox O2 Del Method O2 Flow Rate 98.5 F 102 H 16 123/67 90 L Room Air 2 02/03/23 04:00 02/03/23 04:00 02/03/23 04:00 02/03/23 04:00 02/03/23 04:00 02/03/23 06:42 02/01/23 13:20 Laboratory Results - last 24 hr 02/02/23 06:30: Hgb 10.7 L D 02/02/23 10:28: POC Glucose 103 02/02/23 21:03: POC Glucose 94 02/03/23 05:50: POC Glucose 93 02/03/23 07:05: WBC 6.9, RBC 3.90 L, Hgb 10.5 L, Hct 33.2 L, MCV 85.3, MCH 27.1, MCHC 31.7 L, RDW 17.1, Plt Count 149, MPV 8.8, Neut % (Auto) 75.1, Lymph % (Auto) 14.7, [place] % (Auto) 6.2, Eos % (Auto) 3.6, Baso % (Auto) 0.4, Neut # (Auto) 5.2, Lymph # (Auto) 1.0, [place] # (Auto) 0.4, Eos # (Auto) 0.3, Baso # (Auto) 0.0, Sodium 138, Potassium 3.8, Chloride 105, Carbon Dioxide 26, Anion Gap 10.8, BUN 14, Creatinine 0.60, Estimated Creat Clear 103, Estimated GFR 101, Est GFR ( Amer) 122, Glucose 91, Calcium 8.4, Total Bilirubin 0.8, AST 205 H, ALT 241 H, Alkaline Phosphatase 329 H, Total Protein 6.0 L, Albumin 3.1 L, Globulin 2.9, Albumin/Globulin Ratio 1.1 I & O for Last 24 hours: Intake & Output 01/31/23 02/01/23 02/02/23 02/03/23 23:59 23:59 23:59 23:59 Intake Total 1540 / 1640 2454 / 2454 1228 / 1228 Output Total 450 / 450 1100 / 1700 600 / 600 Balance 1090 / 1190 1354 / 754 628 / 628 Weight 115.865 kg 116.318 kg 113.171 kg 113.171 kg Constitutional Constitutional: no acute distress *Routine HEENT Exam Head: Present normocephalic Eye: Present EOMI and PERRL ENT: Present mucous membranes moist *Routine Neck Exam Neck: Present supple; Absent lymphadenopathy *Routine Respiratory Exam Respiratory: Present CTA bilaterally *Routine Cardiovascular Exam Cardiovascular: Present RRR *Routine Abdominal Exam Abdominal: Present soft and normoactive bowel sounds; Absent tenderness *Routine Extremities Exam Extremities: Absent cyanosis, clubbing or edema *Routine Skin Exam Skin: Present warm; Absent rash *Routine Neurological Exam Neurological: Present alert and oriented X3 Assessment and Plan *Assessment and plan (1) Fall at home: Status: Acute Qualifiers: Encounter type: initial encounter Qualified Code(s): W19.XXXA - Unspecified fall, initial encounter; Y92.009 - Unspecified place in unspecified non-institutional (private) residence as the place of occurrence of the external cause Category: Medical Code(s): W19.XXXA - Unspecified fall, initial encounter; Y92.009 - Unspecified place in unspecified non-institutional (private) residence as the place of occurrence of the external cause (2) Closed fracture of neck of left femur: Status: Inactive Qualifiers: Encounter type: initial encounter Qualified Code(s): S72.002A - Fracture of unspecified part of neck of left femur, initial encounter for closed fracture Category: Medical Code(s): S72.002A - Fracture of unspecified part of neck of left femur, initial encounter for closed fracture (3) Hypertension: Status: Acute Qualifiers: Hypertension type: unspecified Qualified Code(s): I10 - Essential (primary) hypertension Category: Medical Code(s): I10 - Essential (primary) hypertension (4) Hyperlipidemia: Status: Acute Qualifiers: Hyperlipidemia type: unspecified Qualified Code(s): E78.5 - Hyperlipidemia, unspecified Category: Medical Code(s): E78.5 - Hyperlipidemia, unspecified (5) Diabetes mellitus, type 2: Status: Acute Qualifiers: Diabetes mellitus custodial insulin use: with superintendent container terminal use Diabetes mellitus complication status: with other specified complication Qualified Code(s): E11.69 - Type 2 diabetes mellitus with other specified complication; Z79.4 - Long t
--- NOTE | 2023-02-03 11:17 | P.PN_ITS ---
Subjective *Date: 02/03/23 *Time: 11:17 Interval history: Slow with mobilizing with therapy. Ortho Exam (Inpt) Vital signs and Labs for Last 24 Hours: Temp Pulse Resp BP Pulse Ox O2 Del Method O2 Flow Rate 98.7 F 102 H 16 120/67 92 L Room Air 2 02/03/23 08:00 02/03/23 08:00 02/03/23 08:00 02/03/23 08:00 02/03/23 08:00 02/03/23 08:00 02/01/23 13:20 Laboratory Results - last 24 hr 02/02/23 21:03: POC Glucose 94 02/03/23 05:50: POC Glucose 93 02/03/23 07:05: WBC 6.9, RBC 3.90 L, Hgb 10.5 L, Hct 33.2 L, MCV 85.3, MCH 27.1, MCHC 31.7 L, RDW 17.1, Plt Count 149, MPV 8.8, Neut % (Auto) 75.1, Lymph % (Auto) 14.7, [place] % (Auto) 6.2, Eos % (Auto) 3.6, Baso % (Auto) 0.4, Neut # (Auto) 5.2, Lymph # (Auto) 1.0, [place] # (Auto) 0.4, Eos # (Auto) 0.3, Baso # (Auto) 0.0, Sodium 138, Potassium 3.8, Chloride 105, Carbon Dioxide 26, Anion Gap 10.8, BUN 14, Creatinine 0.60, Estimated Creat Clear 103, Estimated GFR 101, Est GFR ( Amer) 122, Glucose 91, Calcium 8.4, Total Bilirubin 0.8, AST 205 H, ALT 241 H, Alkaline Phosphatase 329 H, Total Protein 6.0 L, Albumin 3.1 L , Globulin 2.9, Albumin/Globulin Ratio 1.1 I & O for Labs for Last 24 Hours: Intake & Output 01/31/23 02/01/23 02/02/23 02/03/23 23:59 23:59 23:59 23:59 Intake Total 1540 / 1640 2454 / 2454 1498 / 1498 Output Total 450 / 450 1100 / 1700 600 / 600 Balance 1090 / 1190 1354 / 754 898 / 898 Weight 255 lb 7 oz 256 lb 7 oz 249 lb 8 oz 249 lb 7.989 oz Head: Present normocephalic and atraumatic ENT: Present mucous membranes moist Neck: Present trachea midline Respiratory: Present normal respiratory effort; Absent accessory muscle use or respiratory distress Cardiac: Present Reg Rate and Rhythm and radial pulses present GI: Present soft; Absent distention or tenderness Rectal (female): Present deferred (female): Present deferred Neuro: Present Cranial Nerve 2-12 Intact Assessment and Plan *Assessment and plan (1) Fracture, intertrochanteric, left femur: Status: Acute Category: Medical Code(s): S72.142A - Displaced intertrochanteric fracture of left femur, initial encounter for closed fracture Plan 62-year-old female status post cephalomedullary nail fixation left basicervical femoral neck fracture with intertrochanteric extension. Weightbearing as tolerated. Keep incisional wound VAC until discharge. If she still had Saturday, transition to Covaderm dressing. Follow-up 2 weeks for wound check and x-rays
[2023-02-03 13:56] LABS: POC Glucose,Bedside 93 (70-110)
--- NOTE | 2023-02-03 18:53 | PC.NURSE ---
pt still have frequent c/o pain. pt sat up in chair majority of day, x4 max assist when assisting pt back to bed.
[2023-02-03 20:00] VITALS: BP 132/71; PULSE 81; RESP 16; TEMP 36.9; O2SAT 94
[2023-02-03 20:46] LABS: POC Glucose,Bedside 98 (70-110)
[2023-02-04] VITALS: BP 123/63; PULSE 107; RESP 16; TEMP 37.2; O2SAT 93
[2023-02-04 04:00] VITALS: BP 144/71; PULSE 98; RESP 16; TEMP 36.9; O2SAT 93; BMI 41.8
[2023-02-04 05:20] LABS: POC Glucose,Bedside 90 (70-110)
[2023-02-04 06:50] LABS: Chloride 105 mmol/L (98-107)
[2023-02-04 06:51] LABS: Potassium 3.6 mmoL/L (3.5-5.1); Sodium 140 mmol/L (136-145)
[2023-02-04 06:53] LABS: Alanine Aminotransferase 171 U/L (12-78); Aspartate Amino Transferase 136 U/L (14-36); Bilirubin,Total 0.8 mg/dl (0.2-1.3); Blood Urea Nitrogen 14 mg/dl (7-17); Creatinine Clearance Estimated 54 mL/min (50-200); Estimated Glomerular Filt Rate 101 ml/min (>60); GFR (African American) 122 ML/MIN (>60)
[2023-02-04 06:54] LABS: Albumin Level 3.1 g/dl (3.5-5.0); Albumin/Globulin Ratio 1.1 (1.1-1.8); Alkaline Phosphatase 347 U/L (38-126); Anion Gap 13.6 mEq/L (5-15); Calcium 8.6 mg/dl (8.4-10.2); Carbon Dioxide 25 mmol/L (22.0-30.0); Globulin 2.9 g/dL (1.3-3.2); Glucose 89 mg/dl (74-100)
[2023-02-04 08:00] VITALS: BP 134/67; PULSE 104; RESP 18; TEMP 37; O2SAT 93
--- NOTE | 2023-02-04 08:05 | P.CONPHA_ITS ---
Pharmacy Intervention Comments:
--- NOTE | 2023-02-04 08:05 | HMH.PHAINT1 ---
Pharmacy Intervention Comments:
[2023-02-04 09:13] LABS: POC Glucose,Bedside 114 (70-110)
--- NOTE | 2023-02-04 09:35 | SW/DCPLANNER ---
Addendum entered by [facility] 02/07/23 08:55: [facility] stated they are able to accept this patient for home health services. Addendum entered by [facility] 02/06/23 14:43: [facility] is not able to accept patient's insurance. Patient is fine with returning home w/ home health services and assistance from family/friends. Patient has all needed DME at home. Patient prefers to use [facility]. Patient information/order will be faxed to [facility] at time of discharge. Patient will discharge home today per Dr Cai. Addendum entered by [facility] 02/06/23 10:34: Per Cally cobian/ [employer] once peer to peer was completed they approved patient SNF level of care. However, [facility] does NOT have any female SNF beds available. I spoke with patient regarding situation: patient prefers for patient information to be faxed to [facility]. If not able to discharge to [facility] she prefers to go home w/ home health services ([facility] due to accept [facility]). Patient information has been faxed to Gin cobian/ Clar[facility]. I will continue to follow up with lyssa, and Gin at [facility]. Per patient is medically stable for discharge. Addendum entered by [facility] 02/06/23 07:42: Peer to peer is scheduled for 9AM this morning. Addendum entered by [facility] 02/05/23 14:40: Peer to peer phone number is [phone] reference number is [id number]. Addendum entered by [facility] 02/05/23 14:39: Per Cally / [employer] insurance has denied this patient but peer to peer has been offered. Information has been presented to [facility] to complete peer to peer. Addendum entered by [facility] 02/05/23 09:49: Cally cobian/ [employer] [facility] stated they can accept this patient pending insurance approval. Per Cally precert has been started on this patient. Addendum entered by [facility] 02/05/23 09:12: I have attempted to contact Melisa cobian/ [employer]: no answer at this time VM left. Addendum entered by [facility] 02/04/23 15:36: Cally cobian/ [employer] is reviewing referral. Original Note: I spoke with this patient regarding plans once medically stable for discharge. PT evaluated patient and recommended SNF level of care. Patient also have a wound vac over incision. Patient stated that she resides at home w/ her but concurs that she will need rehab prior to returning home. After a conversation w/ patient and discussing multiple facilities: patient prefers her information be faxed to [facility] in [place]. I spoke with Intake at [facility] and they did confirm female beds are available. Patient information has been faxed at this time. OT has been ordered and evaluation will be faxed once completed this AM.
[2023-02-04 11:40] LABS: POC Glucose,Bedside 130 (70-110)
--- NOTE | 2023-02-04 12:08 | HMH.OTEV ---
OT Inpatient Evaluation Rehab OT IP Evaluation Start: 02/04/23 09:21 Freq: ONCE Status: Active Protocol: Document 02/04/23 11:56 KENJIMILEY (Rec: 02/04/23 12:07 [id number]) Rehab OT IP Assessment Subjective History [id number]: Cephalomedullary nail fixation left intertrochanteric femur fracture Surgeon:: Abdoul Crowley JR, MD Anesthesia: GETA Estimated blood loss (mL): 100 Clinical Note:: 62-year-old female with left hip fracture as a result of a ground-level fall. Fracture pattern consistent with basicervical femoral neck with intertrochanteric extension. I had a discussion with she and her family regarding further management including arthroplasty versus cephalomedullary nail fixation . After discussion of risk, benefits, alternatives, she wished to proceed with cephalomedullary nail fixation left intertrochanteric femur fracture. We discussed the risk and benefits of surgery. Risks included but were not limited to pain, bleeding, infection, damage to adjacent structures, need for further surgery, wound healing complications, loss of limb, . Patient expressed verbal consent and written consent was obtained for the above procedure. 62 year old female referred to skilled OT services after s/p surgery of the L LE. Patient lives in an home with 2-3 CULLEN with . Patient ambulated independently and completed all ADLs independently. Patient reported to continue to drive for outside appts. Subjective
[2023-02-04 15:32] VITALS: BP 123/57; PULSE 96; RESP 18; TEMP 37.2; O2SAT 98
--- NOTE | 2023-02-04 18:40 | PC.NURSE ---
per dr. al, remove wound vac and place 4x4 with tape if there is drainage. change dsg as needed then prior to pts dc dsg incision site per wingett runmiguelina recommendations .
[2023-02-04 20:00] VITALS: BP 121/60; PULSE 98; RESP 18; TEMP 36.7; O2SAT 96
[2023-02-04 21:23] LABS: POC Glucose,Bedside 178 (70-110)
[2023-02-05] VITALS: BP 136/68; PULSE 98; RESP 18; TEMP 36.8; O2SAT 96
[2023-02-05 04:00] VITALS: BP 109/60; PULSE 90; RESP 18; TEMP 36.6; O2SAT 97; BMI 41.6
[2023-02-05 06:09] LABS: POC Glucose,Bedside 108 (70-110)
--- NOTE | 2023-02-05 06:15 | EXP.PN ---
Subjective *Date: 02/04/23 *Time: 09:00 Interval history: No acute events overnight. Pain is in control. Exam Data for Last 24 hours Vital signs and Labs for Last 24 Hours: Temp Pulse Resp BP Pulse Ox O2 Del Method O2 Flow Rate 97.9 F 90 18 109/60 L 97 Room Air 5 02/05/23 04:00 02/05/23 04:00 02/05/23 04:00 02/05/23 04:00 02/05/23 04:00 02/05/23 04:58 02/04/23 11:00 Laboratory Results - last 24 hr 02/04/23 06:09: Sodium 140, Potassium 3.6, Chloride 105, Carbon Dioxide 25, Anion Gap 13.6, BUN 14, Creatinine 0.60, Estimated Creat Clear 54, Estimated GFR 101, Est GFR ( Amer) 122, Glucose 89, Calcium 8.6, Total Bilirubin 0.8, AST 136 H D, ALT 171 H D, Alkaline Phosphatase 347 H, Total Protein 6.0 L, Albumin 3.1 L, Globulin 2.9, Albumin/Globulin Ratio 1.1 02/04/23 08:59: POC Glucose 114 H 02/04/23 11:30: POC Glucose 130 H 02/04/23 20:40: POC Glucose 178 H 02/05/23 05:59: POC Glucose 108 I & O for Last 24 hours: Intake & Output 02/02/23 02/03/23 02/04/23 02/05/23 23:59 23:59 23:59 23:59 Intake Total 2454 / 2454 2308 / 2308 1200 / 1200 Output Total 1100 / 1700 600 / 600 0 / 0 Balance 1354 / 754 1708 / 1708 1200 / 1200 Weight 113.171 kg 113.171 kg 118.206 kg 117.622 kg Constitutional Constitutional: no acute distress *Routine HEENT Exam Head: Present normocephalic Eye: Present EOMI and PERRL ENT: Present mucous membranes moist *Routine Neck Exam Neck: Present supple; Absent lymphadenopathy *Routine Respiratory Exam Respiratory: Present CTA bilaterally *Routine Cardiovascular Exam Cardiovascular: Present RRR *Routine Abdominal Exam Abdominal: Present soft and normoactive bowel sounds; Absent tenderness *Routine Extremities Exam Extremities: Absent cyanosis, clubbing or edema Comments: Left hip with wound vac. *Routine Skin Exam Skin: Present warm; Absent rash *Routine Neurological Exam Neurological: Present alert and oriented X3 Assessment and Plan *Assessment and plan (1) Fall at home: Status: Acute Qualifiers: Encounter type: initial encounter Qualified Code(s): W19.XXXA - Unspecified fall, initial encounter; Y92.009 - Unspecified place in unspecified non-institutional (private) residence as the place of occurrence of the external cause Category: Medical Code(s): W19.XXXA - Unspecified fall, initial encounter; Y92.009 - Unspecified place in unspecified non-institutional (private) residence as the place of occurrence of the external cause (2) Closed fracture of neck of left femur: Status: Inactive Qualifiers: Encounter type: initial encounter Qualified Code(s): S72.002A - Fracture of unspecified part of neck of left femur, initial encounter for closed fracture Category: Medical Code(s): S72.002A - Fracture of unspecified part of neck of left femur, initial encounter for closed fracture (3) Hypertension: Status: Acute Qualifiers: Hypertension type: unspecified Qualified Code(s): I10 - Essential (primary) hypertension Category: Medical Code(s): I10 - Essential (primary) hypertension (4) Hyperlipidemia: Status: Acute Qualifiers: Hyperlipidemia type: unspecified Qualified Code(s): E78.5 - Hyperlipidemia, unspecified Category: Medical Code(s): E78.5 - Hyperlipidemia, unspecified (5) Diabetes mellitus, type 2: Status: Acute Qualifiers: 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
[2023-02-05 07:26] LABS: Chloride 105 mmol/L (98-107); Potassium 3.3 mmoL/L (3.5-5.1); Sodium 140 mmol/L (136-145)
[2023-02-05 07:27] LABS: Basophils % 0.3 % (0.1-2.0); Eosinophils # 0.2 K/mm3 (0.0-0.4); Eosinophils % 3.5 % (0.1-12.0); Hematocrit 29.5 % (37.0-47.0); Hemoglobin 9.3 g/dL (12.2-16.2); Lymphocytes # 1.2 K/mm3 (0.7-4.5); Lymphocytes % 18.9 % (10-50); Mean Corpuscular HGB Conc 31.6 g/dL (31.8-35.4); Mean Corpuscular Hemoglobin 27.3 pg (27.0-31.2); Mean Corpuscular Volume 86.2 fl (81-99); Mean Platelet Volume 8.7 fl (7.4-10.4); Monocytes # 0.4 K/mm3 (0.1-1.0); Monocytes % 5.6 % (1.7-9.3); Neutrophils # 4.6 K/mm3 (1.8-7.8); Neutrophils % 71.8 % (37.0-80.0); Platelet Count 178 K/mm3 (142-424); Red Blood Count 3.42 M/mm3 (4.20-5.40); Red Cell Distribution Width 17.4 % (11.5-17.5); White Blood Count 6.4 K/mm3 (4.8-10.8)
[2023-02-05 07:28] LABS: Blood Urea Nitrogen 17 mg/dl (7-17); Creatinine Clearance Estimated 54 mL/min (50-200); Estimated Glomerular Filt Rate 101 ml/min (>60); GFR (African American) 122 ML/MIN (>60)
[2023-02-05 07:29] LABS: Alanine Aminotransferase 106 U/L (12-78); Albumin Level 2.8 g/dl (3.5-5.0); Alkaline Phosphatase 275 U/L (38-126); Anion Gap 9.3 mEq/L (5-15); Aspartate Amino Transferase 42 U/L (14-36); Bilirubin,Total 0.4 mg/dl (0.2-1.3); Calcium 8.5 mg/dl (8.4-10.2); Carbon Dioxide 29 mmol/L (22.0-30.0); Globulin 2.8 g/dL (1.3-3.2); Glucose 102 mg/dl (74-100); Total Protein,Serum 5.6 g/dl (6.3-8.2)
[2023-02-05 08:00] VITALS: BP 121/66; PULSE 96; RESP 18; TEMP 37.1; O2SAT 98
[2023-02-05 11:07] LABS: POC Glucose,Bedside 156 (70-110)
[2023-02-05 11:45] VITALS: BP 128/68; PULSE 98; RESP 16; TEMP 36.3; O2SAT 94
--- NOTE | 2023-02-05 11:45 | P.PNANES_ITS ---
[facility] Anesthesia Record Part II Anesthesia Record Part II Discharge Time: 13:30 Destination: Second Floor PACU nurse assessment reviewed?: Yes Patient Condition:: Good Anesthesia Complications:: None Swallowing reflex intact?: Yes Airway Patency: Patent Cyanosis?: No Blood Pressure: 128/68 SaO2: 94 Respiratory Rate: 16 Pulse Rate: 98 Temperature: 97.3 F Mental Status: Alert & Oriented Pain level:: 0 Nausea and/or vomitting:: None Intake, IV Amount: 0 Hydration: Adequate
[2023-02-05 15:22] VITALS: BP 96/76; PULSE 80; RESP 18; TEMP 37.2; O2SAT 99
[2023-02-05 16:50] LABS: POC Glucose,Bedside 229 (70-110)
--- NOTE | 2023-02-05 18:52 | EXP.ACUTE.PN ---
Subjective *Date: 02/05/23 *Time: 19:57 Interval history: Patient stable on room air this morning. Sitting in bedside chair on exam. Tolerating p.o. intake with no nausea or vomiting. Pain stable on current regimen Medical Exam Vital signs and Labs for Last 24 Hours: Vital Signs Temp Pulse Resp BP Pulse Ox O2 Del Method 02/05/23 17:59 Room Air 02/05/23 16:39 Room Air 02/05/23 15:22 98.9 F 80 18 96/76 L 99 Room Air 02/05/23 12:54 Room Air 02/05/23 08:00 98 Room Air 02/05/23 10:46 Room Air 02/05/23 09:00 Room Air 02/05/23 08:00 98.7 F 96 H 18 121/66 98 Room Air 02/05/23 06:44 Room Air 02/05/23 04:00 97.9 F 90 18 109/60 L 97 Room Air 02/05/23 04:58 Room Air 02/05/23 02:27 Room Air 02/05/23 01:00 BiPAP 02/05/23 00:00 98.2 F 98 H 18 136/68 96 Room Air 02/04/23 23:00 Room Air 02/04/23 21:00 Room Air 02/04/23 20:00 Room Air 02/04/23 20:00 98.1 F 98 H 18 121/60 96 Room Air 02/05/23 11:45 16 Intake and Output 02/05/23 02/05/23 02/05/23 07:59 15:59 23:59 Intake Total 720 / 720 Output Total 0 / 0 0 / 0 Balance 720 / 720 0 / 720 Intake: Intake, Oral Amount 720 / 720 Intake, Total IV Amount 0 / 0 Output: Output, Urine Amount 0 / 0 0 / 0 Other: Number of Unmeasured Voids 0 0 Weight 117.622 kg Patient Weight 02/05/23 23:59 Weight 117.622 kg Laboratory Results - last 24 hr 02/04/23 20:40: POC Glucose 178 H 02/05/23 05:59: POC Glucose 108 02/05/23 06:38: WBC 6.4, RBC 3.42 L, Hgb 9.3 L, Hct 29.5 L, MCV 86.2, MCH 27.3, MCHC 31.6 L, RDW 17.4, Plt Count 178, MPV 8.7, Neut % (Auto) 71.8, Lymph % (Auto) 18.9, [place] % (Auto) 5.6, Eos % (Auto) 3.5, Baso % (Auto) 0.3, Neut # (Auto) 4.6, Lymph # (Auto) 1.2, [place] # (Auto) 0.4, Eos # (Auto) 0.2, Baso # (Auto) 0.0, Sodium 140, Potassium 3.3 L, Chloride 105, Carbon Dioxide 29, Anion Gap 9.3, BUN 17, Creatinine 0.60, Estimated Creat Clear 54, Estimated GFR 101, Est GFR ( Amer) 122, Glucose 102 H, Calcium 8.5, Total Bilirubin 0.4, AST 42 H D, ALT 106 H D, Alkaline Phosphatase 275 H, Total Protein 5.6 L, Albumin 2.8 L, Globulin 2.8, Albumin/Globulin Ratio 1.0 L 02/05/23 11:01: POC Glucose 156 H 02/05/23 16:44: POC Glucose 229 H I & O for Labs for Last 24 Hours: Intake & Output 02/02/23 02/03/23 02/04/23 02/05/23 23:59 23:59 23:59 23:59 Intake Total 2454 / 2454 2308 / 2308 1200 / 1200 720 / 720 Output Total 1100 / 1700 600 / 600 0 / 0 0 / 0 Balance 1354 / 754 1708 / 1708 1200 / 1200 720 / 720 Weight 113.171 kg 113.171 kg 118.206 kg 117.622 kg Constitutional: Present no acute distress and obese Head: Present atraumatic and normocephalic ENT: Present normal exam Respiratory: Present normal respiratory effort; Absent rhonchi, wheezes or crackles Cardiac: Present Reg Rate and Rhythm GI: Present soft and normal bowel sounds; Absent distention or tenderness Extremities: Present normal inspection Comment:: Left hip tender to palpation over surgical incision. Scant bloody discharge on dressing, no active bleeding on exam Skin: Present intact; Absent erythema Neuro: Present Grossly Intact, alert, awake, oriented x 3 and moves all extremities Assessment and Plan *Assessment and plan (1) Closed fracture of neck of left femur: Status: Inactive Qualifiers: Encounter type: initial encounter Qualified Code(s): S72.002A - Fracture of unspecified part of neck of left femur, initial encounter for closed fracture Category: Medical Code(s): S72.002A - Fracture of unspecified part of neck of left femur, initial encounter for closed fracture (2) Hypertension: Status: Acute Qualifiers: Hypertension type: unspecified Qualified Code(s): I10 - Essential (primary) hypertension Category: Medical Code(s): I10 - Essential (primary) hypertension (3) Hyperlipidemia: Status: Acute
[2023-02-05 20:00] VITALS: BP 135/66; PULSE 89; RESP 18; TEMP 36.9; O2SAT 96
[2023-02-05 21:07] LABS: POC Glucose,Bedside 160 (70-110)
[2023-02-06] VITALS: BP 142/75; PULSE 92; RESP 20; TEMP 36.8; O2SAT 96
[2023-02-06 04:00] VITALS: BP 103/62; PULSE 85; RESP 18; TEMP 36.8; O2SAT 95; BMI 41.3
[2023-02-06 05:57] LABS: POC Glucose,Bedside 120 (70-110)
[2023-02-06 06:35] LABS: Chloride 104 mmol/L (98-107)
[2023-02-06 06:36] LABS: Potassium 3.5 mmoL/L (3.5-5.1)
[2023-02-06 06:37] LABS: Basophils % 0.3 % (0.1-2.0); Eosinophils # 0.2 K/mm3 (0.0-0.4); Eosinophils % 3.8 % (0.1-12.0); Hematocrit 29.4 % (37.0-47.0); Hemoglobin 9.4 g/dL (12.2-16.2); Lymphocytes # 1.1 K/mm3 (0.7-4.5); Lymphocytes % 17.8 % (10-50); Mean Corpuscular HGB Conc 31.8 g/dL (31.8-35.4); Mean Corpuscular Hemoglobin 27.6 pg (27.0-31.2); Mean Corpuscular Volume 86.6 fl (81-99); Mean Platelet Volume 9.1 fl (7.4-10.4); Monocytes # 0.3 K/mm3 (0.1-1.0); Monocytes % 5.8 % (1.7-9.3); Neutrophils # 4.3 K/mm3 (1.8-7.8); Neutrophils % 72.4 % (37.0-80.0); Platelet Count 194 K/mm3 (142-424); Red Cell Distribution Width 17.4 % (11.5-17.5)
[2023-02-06 06:39] LABS: Blood Urea Nitrogen 18 mg/dl (7-17); Calcium 8.5 mg/dl (8.4-10.2); Carbon Dioxide 31 mmol/L (22.0-30.0); Creatinine Clearance Estimated 54 mL/min (50-200); Estimated Glomerular Filt Rate 101 ml/min (>60); GFR (African American) 122 ML/MIN (>60); Glucose 115 mg/dl (74-100)
[2023-02-06 07:10] LABS: Anion Gap 8.5 mEq/L (5-15); Sodium 140 mmol/L (136-145)
[2023-02-06 07:57] VITALS: BP 111/55; PULSE 80; RESP 18; TEMP 36.6; O2SAT 100
--- NOTE | 2023-02-06 10:07 | PC.NURSE ---
during morning med pass assisted patient with walking in room. she was able to stand on own and walk to window and back to chair. no brief placed on patient. had an episode of incontinence
[2023-02-06 11:08] VITALS: BP 117/53; PULSE 72; RESP 16; TEMP 36.6; O2SAT 98
[2023-02-06 11:48] LABS: POC Glucose,Bedside 168 (70-110)
--- NOTE | 2023-02-06 13:38 | EXP.ACUTE.PN ---
Subjective *Date: 02/06/23 *Time: 13:38 Interval history: No events overnight. Hemodynamically stable. Remains afebrile. Patient working with therapy, able to ambulate to the door and back from her chair with a walker (approximately 10 to 15 feet). Tolerating p.o. intake. Having bowel movements. Medical Exam Vital signs and Labs for Last 24 Hours: Vital Signs Temp Pulse Resp BP Pulse Ox O2 Del Method 02/06/23 13:00 Room Air 02/06/23 11:00 Room Air 02/06/23 11:08 97.9 F 72 16 117/53 L 98 Room Air 02/06/23 09:00 Room Air 02/06/23 08:00 Room Air 02/06/23 07:57 97.9 F 80 18 111/55 L 100 Room Air 02/06/23 06:20 Room Air 02/06/23 04:00 98.3 F 85 18 103/62 L 95 Room Air 02/06/23 05:00 Room Air 02/06/23 03:00 Room Air 02/06/23 01:00 Room Air 02/06/23 00:00 98.3 F 92 H 20 142/75 H 96 Room Air 02/05/23 23:00 Room Air 02/05/23 21:00 Room Air 02/05/23 20:00 Room Air 02/05/23 20:00 98.5 F 89 18 135/66 96 Room Air 02/05/23 17:59 Room Air 02/05/23 16:39 Room Air 02/05/23 15:22 98.9 F 80 18 96/76 L 99 Room Air Intake and Output 02/05/23 02/06/23 02/06/23 23:59 07:59 15:59 Intake Total 60 / 330 270 / 330 Output Total 200 / 200 250 / 250 Balance -200 / 520 -190 / 80 270 / 80 Intake: Intake, Oral Amount 60 / 330 270 / 330 Output: Output, Urine Amount 200 / 200 250 / 250 Other: Number of Unmeasured Voids 0 1 1 Weight 116.619 kg Patient Weight 02/06/23 23:59 Weight 116.619 kg Laboratory Results - last 24 hr 02/05/23 16:44: POC Glucose 229 H 02/05/23 21:00: POC Glucose 160 H 02/06/23 05:48: POC Glucose 120 H 02/06/23 05:55: WBC 6.0, RBC 3.40 L, Hgb 9.4 L, Hct 29.4 L, MCV 86.6, MCH 27.6, MCHC 31.8, RDW 17.4, Plt Count 194, MPV 9.1, Neut % (Auto) 72.4, Lymph % (Auto) 17.8, [place] % (Auto) 5.8, Eos % (Auto) 3.8, Baso % (Auto) 0.3, Neut # (Auto) 4.3, Lymph # (Auto) 1.1, [place] # (Auto) 0.3, Eos # (Auto) 0.2, Baso # (Auto) 0.0, Sodium 140, Potassium 3.5, Chloride 104, Carbon Dioxide 31 H, Anion Gap 8.5, BUN 18 H, Creatinine 0.60, Estimated Creat Clear 54, Estimated GFR 101, Est GFR ( Amer) 122, Glucose 115 H, Calcium 8.5 02/06/23 11:39: POC Glucose 168 H I & O for Labs for Last 24 Hours: Intake & Output 02/03/23 02/04/23 02/05/23 02/06/23 23:59 23:59 23:59 23:59 Intake Total 2308 / 2308 1200 / 1200 720 / 720 330 / 330 Output Total 600 / 600 0 / 0 200 / 200 250 / 250 Balance 1708 / 1708 1200 / 1200 520 / 520 80 / 80 Weight 113.171 kg 118.206 kg 117.622 kg 116.619 kg Constitutional: Present no acute distress and obese Head: Present atraumatic and normocephalic ENT: Present normal exam Respiratory: Present normal respiratory effort; Absent rhonchi, wheezes or crackles Cardiac: Present Reg Rate and Rhythm GI: Present soft and normal bowel sounds; Absent distention or tenderness Extremities: Present normal inspection Comment:: Left hip tender to palpation over surgical incision. Scant bloody discharge on dressing, no active bleeding on exam Skin: Present intact; Absent erythema Neuro: Present Grossly Intact, alert, awake, oriented x 3 and moves all extremities Assessment and Plan *Assessment and plan (1) Closed fracture of neck of left femur: Status: Inactive Qualifiers: Encounter type: initial encounter Qualified Code(s): S72.002A - Fracture of unspecified part of neck of left femur, initial encounter for closed fracture Category: Medical Code(s): S72.002A - Fracture of unspecified part of neck of left femur, initial encounter for closed fracture (2) Hypertension: Status: Acute Qualifiers: Hypertension type: unspecified Qualified Code(s): I10 - Essential (primary) hypertension Category: Medical Code(s): I10 - Essential (primary) hypertension (3) Hyperlipidemia: Status: Acute Qualifiers: Hyperlip
[2023-02-06 15:12] VITALS: BP 129/65; PULSE 83; RESP 18; TEMP 37.2; O2SAT 93
--- NOTE | 2023-02-06 15:31 | EXP.DC.SUM ---
General Admission date:: 01/31/23 Discharge date: 02/06/23 HPI HPI HPI: This is a 62-year-old female with a history of obesity, diabetes, hypertension, hyperlipidemia, chronic back pain secondary to degenerative disease, and chronic left hip pain secondary to osteoarthritis presenting to the emergency department for evaluation with concern for acute left hip pain radiating down her left leg to her posterior calf. She ambulates with a walker at home and used her walker to get to her bedside commode. When pulling up her underwear after using the bathroom, she states that she twisted to the side and felt an immediate pain in her left hip going down her leg. She arrived by EMS, as she slumped down to the floor and was unable to get up. She denies any significant injuries from the fall. EMS notes the patient was stable in route. Patient denies any numbness, tingling, saddle anesthesia, incontinence, or other concerns. admitted for further management. Remote history of skin cancer. Hospital Course Hospital Course Hospital Course: 62-year-old female with closed fracture of left hip. Presented after a fall. Status post surgical fixation with cephalomedullary nailing on 02/01. Tolerated well. Initial attempts at placement unfruitful. Patient will discharge home with home health for therapy. Stable at this time to discharge home. Using walker with therapy, able to ambulate at least 10 to 15 feet. Problems addressed as follows: #Closed fracture of the left femoral neck #chronic back pain #t2dm #htn #hld #obesity The patient had cephalomedulalary nail fixation on 02/01. Tolerated procedure well. Wound VAC initially and placed but has subsequently been removed. Attempts to place patient were unsuccessful due to insurance constraints. Medically stable for discharge home. Will initiate home health. Continue hydrocodone 5 mg as needed 4 times a day for pain. Home health referral sent. Continue basal insulin 50 units nightly. Resume home regimen for diabetes control at discharge Continue metoprolol 25 mg twice daily for blood pressure Resume home Xarelto for DVT prophylaxis. Spent 40 minutes in discharge counseling, documentation, coordination of care, and direct care with patient. Exam Data for Last 24 hours Vital signs and Labs for Last 24 Hours: Temp Pulse Resp BP Pulse Ox O2 Del Method O2 Flow Rate 98.9 F 83 18 129/65 93 L Room Air 5 02/06/23 15:12 02/06/23 15:12 02/06/23 15:12 02/06/23 15:12 02/06/23 15:12 02/06/23 15:12 02/04/23 11:00 Laboratory Results - last 24 hr 02/05/23 16:44: POC Glucose 229 H 02/05/23 21:00: POC Glucose 160 H 02/06/23 05:48: POC Glucose 120 H 02/06/23 05:55: WBC 6.0, RBC 3.40 L, Hgb 9.4 L, Hct 29.4 L, MCV 86.6, MCH 27.6, MCHC 31.8, RDW 17.4, Plt Count 194, MPV 9.1, Neut % (Auto) 72.4, Lymph % (Auto) 17.8, Saunders % (Auto) 5.8, Eos % (Auto) 3.8, Baso % (Auto) 0.3, Neut # (Auto) 4.3, Lymph # (Auto) 1.1, Saunders # (Auto) 0.3, Eos # (Auto) 0.2, Baso # (Auto) 0.0, Sodium 140, Potassium 3.5, Chloride 104, Carbon Dioxide 31 H, Anion Gap 8.5, BUN 18 H, Creatinine 0.60, Estimated Creat Clear 54, Estimated GFR 101, Est GFR ( Amer) 122, Glucose 115 H, Calcium 8.5 02/06/23 11:39: POC Glucose 168 H I & O for Last 24 hours: Intake & Output 02/03/23 02/04/23 02/05/23 02/06/23 23:59 23:59 23:59 23:59 Intake Total 2308 / 2308 1200 / 1200 720 / 720 450 / 450 Output Total 600 / 600 0 / 0 200 / 200 250 / 250 Balance 1708 / 1708 1200 / 1200 520 / 520 200 / 200 Weight 113.171 kg 118.206 kg 117.622 kg 116.619 kg Constitutional Constitutional: no acute distress and morbidly obese *Routine HEENT Exam Head: Present normocephalic Eye: Present EOMI and PERRL ENT: Present mucous membranes moist *Routine Neck Exam Neck: Present supple; Absent lymphadenopathy *Routine Respiratory Exam Respiratory: Present CTA bilaterally *Routine Cardiovascular Exam Cardiovascular: Present RRR *Routine Abdom
--- NOTE | 2023-02-06 15:42 | CARE MANAGER ---
Patient unable to use walker due to distance required within the home and will need to utilize a wheelchair.
[2023-02-06 17:00] LABS: POC Glucose,Bedside 144 (70-110)
--- NOTE | 2023-02-06 17:12 | PC.NURSE ---
wheel chair and meds brought to bedside. patient eating dinner and then will change dressing to hip before leaving.
--- NOTE | 2023-02-06 17:37 | PC.NURSE ---
island dressing placed over surgical sites. slight drainage noted. patient waiting for ride.
--- NOTE | 2023-02-07 14:15 | CARE MANAGER ---
Spoke with patient related to hospital discharge. She is aware of her follow up appointments and picked up her medications. SW contacted home health while on the phone with patient and they will see patient tomorrow. Denies any other questions or concerns. JENNIFER Finney
== END 2023-02-06 17:56 | disposition home health service (06) | DRG 481 ==
LOC: ER 19:25 → 2ND 19:29
PROVIDERS: Internal Medicine Adolescent Medicine; Nurse Practitioner Family; Orthopaedic Surgery; Admitting Provider Internal Medicine; Emergency Provider Emergency Medicine; PCP Nurse Practitioner; Visit Provider Internal Medicine
PROC: 0QH736Z Insertion of Intramedullary Internal Fixation Device into Left Upper Femur, Percutaneous Approach (ICD-10-PCS; principal; 2023-02-01 10:30)
DX: S72.142A Displaced intertrochanteric fracture of left femur, initial encounter for closed fracture (principal); Z68.41 Body mass index [BMI] 40.0-44.9, adult; I10 Essential (primary) hypertension; E78.5 Hyperlipidemia, unspecified; E11.69 Type 2 diabetes mellitus with other specified complication; Z79.4 Long term (current) use of insulin; M54.42 Lumbago with sciatica, left side; G89.29 Other chronic pain; E66.9 Obesity, unspecified; W18.11XA Fall from or off toilet without subsequent striking against object, initial encounter; Y92.012 Bathroom of single-family (private) house as the place of occurrence of the external cause; Z79.899 Other long term (current) drug therapy; M54.9 Dorsalgia, unspecified; M25.552 Pain in left hip
CPT/HCPCS: 27245; 36415; 72131; 72192; 73502; 73552; 73562; 73700; 76000; 80048; 80053; 82962; 83036; 83735; 84100; 85025; 85610; 86850; 96374; 97116; 97161; 97165; 97530; 99285; C1713; C1769; C1776; J0131; J2405

== ENCOUNTER → 2023-02-21 11:02 | Outpatient (CLI) | payer OTHER, SELFPAY ==
--- NOTE | 2023-02-21 11:07 | XR_ITS ---
FINAL REPORT TECHNIQUE: Left femur, 7 views. CLINICAL HISTORY: lt femur fx COMPARISON: None FINDINGS: LEFT FEMUR: Multiple views of the left femur reveal that the patient has undergone ORIF of a fracture of the region of the base of the femoral neck and perhaps the greater trochanter. There is satisfactory alignment of the fracture fragments. The hip joint is preserved. IMPRESSION: ORIF of a proximal femoral fracture as described. Reviewed, Interpreted and Dictated by Christiano Valdovinos III, MD Transcribed by Louisa Elkins Authenticated and [facility]
== END ==
PROVIDERS: PCP Nurse Practitioner; Visit Provider Orthopaedic Surgery
DX: S72.142A Displaced intertrochanteric fracture of left femur, initial encounter for closed fracture (principal)
CPT/HCPCS: 73552

== ENCOUNTER 2023-02-25 17:26 | Emergency (ER) | payer OTHER, SELFPAY ==
[2023-02-25 17:27] VITALS: BP 140/56; PULSE 92; RESP 18; TEMP 37; O2SAT 99; BMI 40.3
--- NOTE | 2023-02-25 17:48 | PC.NURSE ---
Dr. Magana at [facility]
--- NOTE | 2023-02-25 17:51 | XR_ITS ---
PROCEDURE INFORMATION: Exam: XR Left Hip Exam date and time: 02/25/2023 6:20 PM Age: 62 years old Clinical indication: Hip pain; Prior surgery; Surgery date: <1 month; Surgery type: Left hip surgery 3 weeks ago. ; Additional info: Post op, chills and pain over site TECHNIQUE: Imaging protocol: Radiologic exam of the left hip. Views: 2 or 3 views hip with pelvis when performed. COMPARISON: CR XR HIP LT 2-3V W/PELVIS 02/01/2023 2:31 PM FINDINGS: Bones/joints: Postsurgical changes of left femoral neck fracture ORIF. Intact surgical hardware. Unchanged postsurgical alignment. No acute fracture. Mild bilateral hip osteoarthritis. Lower lumbar spondylosis. Soft tissues: Unremarkable. IMPRESSION: Postsurgical changes of left femoral neck fracture ORIF without evidence of acute complication.
--- NOTE | 2023-02-25 17:51 | XR_ITS ---
PROCEDURE INFORMATION: Exam: XR Left Femur Exam date and time: 02/25/2023 6:22 PM Age: 62 years old Clinical indication: Injury or trauma; Fall; Blunt trauma; Thigh or upper leg; Prior surgery; Surgery date: <1 month; Surgery type: Left hip surgery 3 weeks ago. ; Additional info: Post op, chills and pain over site TECHNIQUE: Imaging protocol: Radiologic exam of the left femur. Views: 2 views. COMPARISON: CR XR FEMUR LT 2V 02/21/2023 11:10 AM FINDINGS: Bones/joints: Postsurgical changes of left femoral neck fracture ORIF. Intact surgical hardware. Unchanged postsurgical alignment. No acute fracture. Mild left hip and knee osteoarthritis. Soft tissues: Unremarkable. IMPRESSION: Postsurgical changes of left femoral neck fracture ORIF without evidence of acute complication.
[2023-02-25 18:00] VITALS: BP 147/68; PULSE 90; O2SAT 97
--- NOTE | 2023-02-25 18:11 | HMH.EDGENADL ---
Discharge Plan Disposition Patient Disposition: Home, Self-Care Chief Complaint: Weakness Prescriptions Prescriptions: No Action hydrocodone-acetaminophen 5-325 mg tablet 1 tab PO TID PRN (Reason: post op pain) Qty: 45 0RF hydrochlorothiazide 25 mg tablet 25 mg PO DAILY omeprazole 20 mg capsule,delayed release(DR/EC) 20 mg PO DAILY rosuvastatin 10 mg tablet 10 mg PO DAILY lisinopril 2.5 mg tablet 2.5 mg PO DAILY aspirin 81 MG tablet,chewable 81 mg PO DAILY insulin glargine [Basaglar KwikPen U-100 Insulin] 100 unit/mL (3 mL) insulin pen 75 unit SQ DAILY methocarbamol 500 mg tablet 500 mg PO BID Patient Comments: TAKE 1 TABLET BY MOUTH 2 TIMES DAILY. sertraline 100 mg tablet 100 mg PO DAILY Patient Comments: TAKE 1 TABLET BY MOUTH DAILY. ergocalciferol (vitamin D2) 1,250 mcg (50,000 unit) capsule 1,250 mcg PO DIRECTED Patient Comments: TAKE 1 CAPSULE BY MOUTH TWICE WEEKLY. Rx Instructions: TAKE 1 CAPSULE BY MOUTH TWICE WEEKLY. metoprolol tartrate 25 mg tablet 25 mg PO BID Patient Comments: TAKE 1 TABLET BY MOUTH 2 TIMES DAILY. pregabalin 150 mg capsule 150 mg PO TID Patient Comments: TAKE 1 CAPSULE BY MOUTH 3 TIMES DAILY. levocetirizine 5 mg tablet 5 mg PO DAILY cholecalciferol (vitamin D3) [Vitamin D3] 125 mcg (5,000 unit) tablet 125 mcg PO DAILY Jardiance 25 mg tablet 25 mg PO DAILY Patient Comments: TAKE 1 TABLET BY MOUTH DAILY. Mounjaro 5 mg/0.5 mL pen injector 5 mg SQ WEEKLY Patient Comments: INJECT 5 MG UNDER THE SKIN ONCE WEEKLY oxycodone 5 mg tablet 5 mg PO Q4H PRN (Reason: pain) Qty: 45 0RF Xarelto 10 mg tablet 10 mg PO DAILY Qty: 30 0RF Rx Instructions: for 35 days Referrals Follow up/Referrals: Meet Crowley DO [Primary Care Provider] - See instructions Activity Restrictions/Add. Instructions Additional Instructions/Restrictions: Call your family doctor to establish care for this visit to the emergency department and schedule follow-up within 48 hours to ensure improvement. If you have any worsening of your condition or any other concerning signs or symptoms, return to the emergency department or your primary care doctor for further evaluation. Clinical Impressions Clinical Impression: Chills Discharge ED Provider: Ritchie Magana General Adult HPI General Chief complaint: Weakness Stated complaint: chills, nausea Time Seen by Provider: 02/25/23 17:30 Mode of Arrival: Ambulatory Source of Information: Patient Limitations: No Limitations Description of Symptoms (Recalled from ER Triage Doc. by RN): pt had left hip fracture surgery here 3 weeks by . pt was doing physical therapy today and got nausea as well as been chilling and sweating over the last few nights. pt denies fever rash and any other s/s. History of Present Illness HPI narrative: 61-year-old female with history of hypertension, hyperlipidemia, diabetes, obesity, recent left intertrochanteric hip fracture status post fixation on 02/01/2023 presenting with chills. Patient states that for the past 2 or 3 days she has been having intermittent chilling episodes, breaking out in cold sweats. Denies nausea or vomiting, diarrhea, constipation, abdominal pain, chest pain, shortness of breath, neurologic deficits or any recent sick contacts or travel. No redness or pain around her incision site or urinary symptoms. Came in to get checked out in light of recent surgery. Related Data Home Medications Medication Instructions Recorded Confirmed hydrochlorothiazide 25 mg tablet 25 mg PO DAILY Fluid 10/11/17 02/21/23 lisinopril 2.5 mg tablet 2.5 mg PO DAILY High Blood Pressure 10/11/17 02/21/23 omeprazole 20 mg capsule,delayed 20 mg PO DAILY acid reflux 10/11/17 02/21/23 release rosuvastatin 10 mg tablet 10 mg PO DAILY Cholesterol 10/11/17 02/21/23 ericka
[2023-02-25 18:41] LABS: Basophils % 0.3 % (0.1-2.0); Eosinophils # 0.1 K/mm3 (0.0-0.4); Hematocrit 39.8 % (37.0-47.0); Hemoglobin 12.1 g/dL (12.2-16.2); Lymphocytes # 0.8 K/mm3 (0.7-4.5); Mean Corpuscular HGB Conc 30.5 g/dL (31.8-35.4); Mean Corpuscular Volume 85.3 fl (81-99); Mean Platelet Volume 9.5 fl (7.4-10.4); Monocytes # 0.3 K/mm3 (0.1-1.0); Monocytes % 4.7 % (1.7-9.3); Neutrophils # 5.3 K/mm3 (1.8-7.8); Platelet Count 168 K/mm3 (142-424); Red Blood Count 4.66 M/mm3 (4.20-5.40); Red Cell Distribution Width 17.7 % (11.5-17.5); White Blood Count 6.4 K/mm3 (4.8-10.8)
[2023-02-25 18:46] LABS: Chloride 104 mmol/L (98-107)
[2023-02-25 18:47] LABS: Potassium 4.2 mmoL/L (3.5-5.1); Sodium 143 mmol/L (136-145)
[2023-02-25 18:49] LABS: Alanine Aminotransferase 23 U/L (12-78); Aspartate Amino Transferase 23 U/L (14-36); Blood Urea Nitrogen 16 mg/dl (7-17); Creatinine Clearance Estimated 103 mL/min (50-200); Estimated Glomerular Filt Rate 72 ml/min (>60); GFR (African American) 88 ML/MIN (>60)
[2023-02-25 18:50] LABS: Albumin/Globulin Ratio 1.3 (1.1-1.8); Alkaline Phosphatase 190 U/L (38-126); Anion Gap 17.2 mEq/L (5-15); Bilirubin,Total 0.6 mg/dl (0.2-1.3); Calcium 9.7 mg/dl (8.4-10.2); Carbon Dioxide 26 mmol/L (22.0-30.0); Globulin 3.2 g/dL (1.3-3.2); Glucose 126 mg/dl (74-100); Total Protein,Serum 7.2 g/dl (6.3-8.2)
[2023-02-25 19:26] LABS: C-Reactive Protein 7.3 mg/L (0-4)
[2023-02-25 20:03] LABS: Erythrocyte Sedimentation Rate 75 mm/hr (0-30)
[2023-02-25 20:16] VITALS: BP 142/50; PULSE 62; RESP 20; O2SAT 100
[2023-02-25 20:32] LABS: Lactic Acid 1.2 mmol/L (0.7-2.1)
[2023-02-25 20:33] VITALS: BP 142/50; PULSE 100; RESP 18; TEMP 36.7; O2SAT 100
[2023-02-25 20:33] LABS: Adenovirus,PCR Not Detected (NotDetected); Bordetella Pertussis Not Detected (NotDetected); Chlamydophila Pneumoniae, PCR Not Detected (NotDetected); Coronavirus 19, PCR Not Detected (NotDetected); Coronavirus 229E Not Detected (NotDetected); Coronavirus NL63 Not Detected (NotDetected); Coronavirus OC43 Not Detected (NotDetected); Coronovirus HKU1,PCR Not Detected (NotDetected); Human Metapneumovirus Not Detected (NotDetected); Influenza A, PCR Not Detected (NotDetected); Influenza AH1, 2009 Not Detected (NotDetected); Influenza AH1, PCR Not Detected (NotDetected); Influenza AH3,PCR Not Detected (NotDetected); Influenza B, PCR Not Detected (NotDetected); Mycoplasma Pneumoniae, PCR Not Detected (NotDetected); Parainfluenza 1, PCR Not Detected (NotDetected); Parainfluenza 2, PCR Not Detected (NotDetected); Parainfluenza 3, PCR Not Detected (NotDetected); Parainfluenza 4, PCR Not Detected (NotDetected); Respiratory Syncytial Virus Not Detected (NotDetected); Rhinovirus/Enterovirus Not Detected (NotDetected)
[2023-02-25 21:11] LABS: Microscopic, Urine URINE MICROSCOPIC (MICROSCOPIC)
[2023-02-25 21:22] LABS: Appearance,Urine CLEAR (Clear); Blood, Urine Negative (Negative); Color,Urine YELLOW (Yellow); Glucose,Urine (UA) 2+ (Negative); Ketones,Urine 3+ (Negative); Leukocyte Esterase,Urine Negative (Negative); Nitrate,Urine Negative (Negative); Protein,Urine 1+ (Negative); Specific Gravity, Urine >= 1.030 (1.005-1.030); Urobilinogen,Urine 0.2 EU/dl (0.2)
[2023-02-25 21:26] LABS: Bilirubin,Urine 2+ (Negative)
--- NOTE | 2023-02-25 21:30 | PC.NURSE ---
Called lab to find out how much longer it would be for the respiratory panel to result and lab informed me it would be another hour and a half. informed patient and she was upset about the wait time ER MD made aware
[2023-02-25 21:38] LABS: Squamous Epithelial Cell,Urine Occasional #/hpf (0-5); WBC,Urine Occasional #/hpf (0-3)
[2023-02-25 21:47] LABS: Coronavirus 19, PCR Not Detected (NotDetected); Influenza A, PCR Not Detected (NotDetected); Influenza B, PCR Not Detected (NotDetected)
[2023-02-25 22:35] VITALS: BP 138/76; PULSE 90; RESP 20; TEMP 36.7; O2SAT 98
== END 2023-02-25 22:38 | disposition home or self-care (01) ==
PROVIDERS: Emergency Provider Emergency Medicine; PCP Internal Medicine
DX: R68.83 Chills (without fever) (principal); R53.1 Weakness; R11.0 Nausea; E11.9 Type 2 diabetes mellitus without complications; I10 Essential (primary) hypertension; E78.5 Hyperlipidemia, unspecified
CPT/HCPCS: 73502; 73552; 80053; 81001; 83605; 85025; 85651; 86140; 87581; 87632; 87636; 87798; 99285

== ENCOUNTER → 2023-03-21 09:07 | Outpatient (CLI) | payer OTHER, SELFPAY ==
--- NOTE | 2023-03-21 09:12 | XR_ITS ---
FINAL REPORT CLINICAL HISTORY: lt hip pain COMPARISON: 02/25/2023 FINDINGS: LEFT HIP: Two views of the left hip demonstrate postoperative changes in the left femur. There is an intertrochanteric fracture of the left proximal femur. Moderate degenerative changes are seen in both hips and the lower lumbar spine. IMPRESSION: Intertrochanteric fracture of the left proximal femur. Postoperative changes in the left femur. Reviewed, Interpreted and Dictated by Christiano Valdovinos III, MD Transcribed by Gloria Dominguez Authenticated and [facility]
== END ==
PROVIDERS: PCP Nurse Practitioner; Visit Provider Orthopaedic Surgery
DX: M25.552 Pain in left hip (principal); S72.142A Displaced intertrochanteric fracture of left femur, initial encounter for closed fracture
CPT/HCPCS: 73502

== ENCOUNTER → 2023-06-06 14:34 | Outpatient (CLI) | payer OTHER, SELFPAY ==
--- NOTE | 2023-06-06 14:38 | XR_ITS ---
FINAL REPORT CLINICAL HISTORY: left hip fx FINDINGS: Left hip Four views were obtained. IM braxton and compression screws present. There are mild hypertrophic changes at the hip joint. IMPRESSION: Postsurgical changes. Reviewed, Interpreted and Dictated by Luke Bergeron MD Transcribed by Sakshi Vega Authenticated and [facility]
== END ==
PROVIDERS: PCP Nurse Practitioner; Visit Provider Orthopaedic Surgery
DX: S72.142D Displaced intertrochanteric fracture of left femur, subsequent encounter for closed fracture with routine healing (principal); Y99.9 Unspecified external cause status
CPT/HCPCS: 73502